=== PATIENT | female | born 2000 | race Hispanic/Latino ===

== ENCOUNTER 2024-02-12 22:56 | Emergency (ER) | payer BC, SELFPAY ==
[2024-02-12 23:00] VITALS: BP 159/110
[2024-02-12] MEDS: CIPRO 750 MG PO (23:24)
[2024-02-12] MEDS: TORADOL 15 MG IM (23:24)
--- NOTE | 2024-02-12 23:25 | ED.GENMED ---
History of Present Illness
General
Chief Complaint: Ear Problem
Source: patient
Time Seen by Provider: 02/12/24 23:07
History of Present Illness
History of Present Illness:
23-year-old female presents emergency department with complaints of increasing left ear pain that started 2 days ago. She does describe recent swimming. She describes pain and a small amount of drainage from the left ear area. She went to an
urgent care and was prescribed external drops which she has been compliant with. Despite this, she notes increasing discomfort associated with mild trismus. She denies fever, chills, headache, dizziness, nausea, vomiting, chest pain, neck pain,
shortness of breath, or other complaints. Patient does not have a history of immunosuppression or diabetes.
Past History
Past History
ED Past Medical History: None
ED Past Surgical History: Tonsilectomy (2009)
Social History
Tobacco: Smoker
Alcohol: Occasional
Drug: None
Personal: Single
Living: with family
Employment: Employed
Family History
Family History: Other
Phy Exam
Physical Exam
Physical Exam:
GENERAL: Alert , appears mildly uncomfortable but generally nontoxic and pleasant
EYE: pupils equal and reactive, EOMI, no nystagmus
NECK: Supple, no significant adenopathy, trachea midline, nods yes and no easily.
ENT: o/p clr, mmm, mild trismus, voice clear, uvula midline. L tm visualized and mild erythema noted, canal is edematous with exudative and mild drdainage assoc with rednes/swarmth of pinna. No mastiod ttp, ear displacement or abnl otherwise.
CARDIAC: Regular rate and rhythm .
LUNGS: Clear breath sounds bilaterally, no acute respiratory distress, no wheezes/rales/rhonchi
ABDOMEN: Soft, without focal tenderness, no r/g, no cvat
NEUROLOGICAL: Alert and oriented, no focal neuro deficits
SKIN: Warm and dry, skin intact.
MUSCULOSKELETAL: No edema, well perfused.
PSYCH: Normal and appropriate interaction.
Course
Orders/Labs/Results
Orders:
Orders
02/12/24 23:19
Ciprofloxacin HCl [Cipro] 750 mg PO NOW STA
Ketorolac [Toradol] 15 mg IM NOW STA
02/12/24 23:24
Oxycodone/Acetaminophen [Percocet 5/325] 2 tablet PO NOW STA
02/12/24 23:31
Wound Culture [Wound/Abscess/Other Culture] Urgent
EDOUARD Source: Face
Specimen Description: Left
Date Specimen was Collected: 02/12/24
Time Specimen was Collected: :28
Vital Signs
Initial and Last Documented VS:
Initial Vital Signs
Temp Pulse Resp BP Pulse Ox
99.1 F 124 18 159/110 97
02/12/24 23:00 02/12/24 23:00 02/12/24 23:00 02/12/24 23:00 02/12/24 23:00
Last Documented Vital Signs
Temp Pulse Resp BP Pulse Ox
99.1 F 124 18 159/110 97
02/12/24 23:00 02/12/24 23:00 02/12/24 23:00 02/12/24 23:00 02/12/24 23:00
*Critical Care Note
Total Time (30-74mins, 75-104mins- exclusive of procedures): Not Applicable
Update Note
Update Note:
Patient presents to the Emergency Department with ___otorrhea and otalgia
Number and Complexity of Problems Addressed at the Encounter
� Chronic conditions affecting care:
� Acute Exacerbation and/or Progression of Chronic Illness:
� Differential Diagnosis includes: But not limited to otitis media, otitis externa, necrotizing otitis externa, etc.
Amount and/or Complexity of Data to be Reviewed and Analyzed
� I performed an independent evaluation of and my interpretation is:
EKG:
CT:
Xrays:
Laboratory Studies:
Other:
� Review of other/old records reveals:
� Clinical information was obtained by an independent historian:
� Prescriptions/Medications Considered but not given:
� Further testing considered but not performed:
Risk of Complications and/or Morbidity or Mortality of Patient Management
� Social determinants of health affecting care:
� Discussion with other providers (PCP, Hospitalists, Consultants, etc):
� Escalation of care including admission/observation vs risk of discharge considered: 12:14 AM reassessment� Patient is significantly improved in regards to pain, smiling, expressing thanks. I did encourage patient to continue
drops as well as taking Cipro 750 twice daily which I called into her pharmacy. Equally important, I emphasized to her the importance of ENT follow-up and reassessment within the next 48 to 72 hours as well as reasons to return the emergency
department.
ED Attending Note
-
Portions of this chart may have been created with voice recognition software.� Occasional wrong word or��sound alike� substitutions may have occurred due to the inherent limitations of voice recognition software.
Discharge Plan
Departure
Patient Disposition: Home (Routine Discharge)
Date of Disposition: 02/13/24
Time of Disposition: 00:12
Patient with high blood pressure during this ER visit?: Yes
Condition: Good
Discharge Problem:
Acute Otitis Externa
Instructions: Outer ear infection, BLOOD PRESSURE
Prescriptions:
New
ciprofloxacin HCl 750 mg tablet
750 mg PO BID Qty: 20 0RF
No Action
prednisone 50 MG tablet
50 mg PO DAILY Qty: 5 0RF
albuterol sulfate [Proventil HFA] 90 MCG/PUFF HFA aerosol inhaler
2 puff inhalation Q4HPRN PRN (Reason: shortness of breath) Qty: 1 0RF
clindamycin HCl 300 MG capsule
300 mg PO TID 5 Days Qty: 14 0RF
prednisone 10 MG tablet
10 mg PO DAILY Qty: 30 0RF
Rx Instructions:
50 mg days 1&2, 40 mg days 3&4, 30 mg days 5&6, 20 mg days 7&8, 10 mg days 9&10
albuterol sulfate 18 GM HFA aerosol inhaler
18 gm IH Q2HPRN PRN (Reason: wheezing, cough) Qty: 1 0RF
albuterol sulfate [ProAir HFA] 90 mcg/actuation Hfa Aerosol Inhaler
2 puff INHALATION Q4HPRN PRN (Reason: shortness of breath) Qty: 8.5 0RF
prednisone 50 mg Tablet
50 mg PO DAILY Qty: 2 0RF
azithromycin 250 mg tablet
250 mg PO DAILY 4 Days Qty: 4 0RF
Referrals:
Nga Glass MD [Active] - Tomorrow
Activity Restrictions/Additional Instructions:
PLEASE TAKE YOUR MEDICATIONS PRESCRIBED. IT IS VERY IMPORTANT THAT YOU CONTACT DR GLASS IN THE MORNING FOR PROMPT (WITHIN 2 DAYS) FOLLOW UP AND REASSESSMENT. IF YOU DEVELOP FEVER, INCREASING/NEW/PERSISTENT PAIN, TROUBLE BREATHING/CHEWING,
DIZZINESS, NECK PAIN, VOMITING, OR OTHER WORRISOME SIGNS, GO TO THE ER IMMEDIATELY!
Interventions
Interventions:
*Risk Screen - Suicide Last Done: 02/12/24 23:00
*General Assessment Last Done: 02/12/24 23:00
*Neglect/Abuse Screening Last Done: 02/12/24 23:00
ED- Fall Risk Assessment Last Done: 02/12/24 23:00
*ED COVID-19 Vaccine History Last Done: 02/12/24 23:00
Discharge Date and Time
Print Language: BERMUDIAN
[2024-02-12] MEDS: PERCOCET 5/325 2 TABLET PO (23:32)
[2024-02-13] VITALS: BP 156/91
== END 2024-02-13 00:31 | disposition home or self-care (01) ==
LOC: EMR 22:56
PROVIDERS: EMERGENCY PHYSICIAN Emergency Medicine
DX: H60.92 Unspecified otitis externa, left ear (principal); R03.0 Elevated blood-pressure reading, without diagnosis of hypertension; F17.200 Nicotine dependence, unspecified, uncomplicated
CPT/HCPCS: 99284; 96372; 87070; 87077; 87186; 87205

== ENCOUNTER 2024-02-14 18:53 | Inpatient (IN) | payer BC, SELFPAY ==
[2024-02-14 14:03] VITALS: BP 174/116
[2024-02-14 15:16] VITALS: BMI 63.8
--- NOTE | 2024-02-14 15:17 | ED.GENMED ---
History of Present Illness
General
Chief Complaint: Ear Problem
Source: patient, records and family (Mother)
Exam Limitations: none
Time Seen by Provider: 02/14/24 14:54
Nursing documentation reviewed up to this point in time: agreed with
History of Present Illness
History of Present Illness:
23-year-old female with no significant chronic medical issues who presents to the emergency room with her mother for evaluation of left ear pain. Patient had onset of symptoms 4 days ago of left otalgia and otorrhea. She was initially seen in
urgent care and was prescribed Ciprodex which did not improve her symptoms. Patient was seen in this emergency room 2 days ago and advised to continue drops as well as started on ciprofloxacin 750 mg twice daily. She has been taking these but
feels her symptoms are actually worsening. She says she is having increasing pain in the ear. She says that she is having trouble getting the drops into the ear because she feels the ear is occluded. She says she is having pain radiating down
towards the neck and the jaw. She says she has pain when she opens her jaw. She says that last night it was severe enough that she began to feel nauseous and vomited once. She has not had any sore throat or difficulty swallowing. She denies any
fevers or chills. She denies any other complaints.
Past History
Past History
ED Past Medical History: None
ED Past Surgical History: Tonsilectomy (2009)
Social History
Tobacco: Smoker
Alcohol: Occasional
Drug: None
Personal: Single
Living: with family
Employment: Employed
Family History
Family History: Other
Review of Systems
Review of Systems
All Other Systems: ROS reviewed and negative except as documented in HPI and ROS
Constitutional: Denies fever or chills
EENT: Reports other (Otorrhea, otalgia)
Respiratory: Denies trouble breathing
Cardiac: Denies chest pain
ABD/GI: Reports nausea and vomiting; Denies abdominal pain
: Denies flank pain
Musculoskeletal: Reports neck pain; Denies back pain
Neurological: Denies dizzy or headache
Phy Exam
Physical Exam
Physical Exam:
General: Awake, alert, oriented x3; anxious but no acute distress
Head: Normocephalic, atraumatic
Eyes: Conjunctiva normal, EOMI
Ears: Right ear�pinna appears normal, no redness or tenderness to the mastoid process, ear canal clear with no edema or erythema, TM intact with good light reflex, no effusion, no erythema //left ear�pinna appears normal, no redness or tenderness in
the mastoid process; left ear canal is occluded with thick purulent discharge, unable to visualize TM
Throat: Airway intact, handling secretions, midline uvula, no edema
Neck: Trachea midline, supple without meningismus, full range of motion; she does have left cervical adenopathy
Lungs: Breathing comfortably no distress
Heart: Tachycardia
Neuro: No gross deficits
Extremities: Warm and well-perfused
Scores
Heart Failure Risk
Heart Failure Risk Score: Not Applicable
Heart Score for Chest Pain Patients
STEMI patient?: Not applicable
Withdrawal Assessment of Alcohol
Withdrawal Assessment Completed?: Not applicable
Course
Orders/Labs/Results
Orders:
Orders
02/14/24 15:09
Ketorolac [Toradol] 30 mg IM NOW STA
02/14/24 15:12
CT Temporal-iac W/o Iv Contras Urgent
Reason For Exam: L otalgia, otorrhea worsening
02/14/24 15:16
Ketorolac [Toradol] 15 mg IV NOW STA
02/14/24 15:19
CRP [C-Reactive Protein] Urgent
Complete Blood Count/With Diff Urgent
Comprehensive Metabolic Panel Urgent
ESR [Erythrocyte Sed Rate] Urgent
02/14/24 15:43
Ketorolac [Toradol] 30 mg IM NOW STA
02/14/24 17:51
ENT CONSULT Urgent
Consulting Provider: Nick Rondon
Was physician already notified: Yes
02/14/24 18:08
Dexamethasone Sod Phosphate [Decadron] 10 mg IV NOW STA
Piperacillin/Tazo 3.375 Gram [Zosyn] 3.375 gram in 50 ml IV NOW
02/14/24 19:00
Tobramycin/Dexamethasone [Tobradex Eye Drops] See Dose Instructions LEFT EAR Q6H
Abnormal Lab Results
02/14/24
15:19
MCV 79.6 L fL
(81.0-99.0)
MCH 26.6 L pg
(27.0-31.0)
ESR 53 H mm/hour
(0-20)
Carbon Dioxide 19 L mmol/L
(22-30)
C-Reactive Protein 50.70 H mg/L
(0.0-10.00)
02/14/24 15:19
02/14/24 15:19
Vital Signs
Initial and Last Documented VS:
Initial Vital Signs
Temp Pulse Resp BP Pulse Ox
36.6 C 114 18 174/116 98
02/14/24 14:03 02/14/24 14:03 02/14/24 14:03 02/14/24 14:03 02/14/24 14:03
Last Documented Vital Signs
Temp Pulse Resp BP Pulse Ox
36.6 C 118 17 151/104 98
02/14/24 14:03 02/14/24 17:52 02/14/24 17:52 02/14/24 17:52 02/14/24 17:52
MDM/Problems Addressed
Differential Diagnosis Includes:
TM perforation, acute otitis externa, malignant otitis externa, otitis media
MDM/Problems Addressed:
23-year-old female presents with worsening left otalgia and otorrhea despite outpatient treatment with eardrops and oral antibiotic as described above. Hypertensive and tachycardic in triage otherwise normal vitals. Physical exam as above. Her
left TM is not visible as her left ear canal is occluded with thick purulent discharge�will certainly need to clean out canal to visualize TM and can irrigate clean if intact. My concern given the progression of her symptoms is potentially for
malignant otitis externa especially given the severity of her pain. Will check labs including a CBC and a CMP, ESR/CRP. Will check CT of the temporal bone. Will discuss with ENT pending initial assessment and treatment. Treat pain.
Labs reviewed: CBC and CMP unremarkable, ESR and CRP were elevated. CT shows findings concerning for possible malignant otitis externa. Case discussed with ENT for evaluation.
ENT evaluated at bedside, placed ear wick in the left ear. Recommended admission for IV antibiotics�recommended starting with Zosyn. Also recommended treating with dexamethasone and TobraDex drops to be applied to left ear wick. Case discussed
with hospitalist for admission.
*Radiology
Radiology exam reviewed: radiology read reviewed
*Pulse Oximetry
Patient hypoxic: no
*Critical Care Note
Total Time (30-74mins, 75-104mins- exclusive of procedures): Not Applicable
Data Reviewed
Source: patient and family (Mother)
Patient Management
Discussion with other providers: Hospitalist (Discussed with hospitalist) and Crystal Grower (Discussed with ENT)
Escalation/DeEscalation of care consider admission/obs:
Admission indicated
ED Attending Note
-
Portions of this chart may have been created with voice recognition software.� Occasional wrong word or��sound alike� substitutions may have occurred due to the inherent limitations of voice recognition software.
Discharge Plan
Departure
Patient Disposition: Admit
Date of Disposition: 02/14/24
Time of Disposition: 18:11
Admit to doctor: Cici
Presentation/result/management discussed w/ accepting MD/DO: Hospitalist
Discharge Problem:
Acute Otitis Externa
Referrals:
UNKNOWN - PT DOES,NOT KNOW [Family Provider] -
Interventions
Interventions:
*Risk Screen - Suicide Last Done: 02/14/24 15:17
*General Assessment Last Done: 02/14/24 14:03
*Neglect/Abuse Screening Last Done: 02/14/24 15:17
*ED COVID-19 Vaccine History Last Done: 02/14/24 14:03
Discharge Date and Time
Print Language: ICELANDIC
[2024-02-14] MEDS: TORADOL IM (15:18)
[2024-02-14] MEDS: TORADOL 30 MG IM (15:43)
[2024-02-14 15:50] LABS: % Basophils 0.5 % (0-2); % Eosinophils 4.7 % (0-6); % Immature Granulocytes 0.3 % (0-0.5); % Lymphocytes 26.9 % (20.5-51.1); % Monocytes 5.3 % (1.7-9.3); % Neutrophils 62.3 % (42.2-75.2); Absolute Basophils 0.1 10^3/uL (0-0.2); Absolute Eosinophils 0.5 10^3/uL (0-0.7); Absolute Lymphocytes 2.7 10^3/uL (1.2-3.4); Absolute Monocytes 0.5 10^3/uL (0.1-0.6); Absolute Neutrophils 6.3 10^3/uL (1.4-6.5); Hematocrit 39.8 % (37.0-47.0); Hemoglobin 13.3 g/dL (12.0-16.0); Mean Corp Hgb Conc. 33.4 g/dL (33.0-37.0); Mean Corpuscular Hgb 26.6 pg (27.0-31.0); Mean Corpuscular Volume 79.6 fL (81.0-99.0); Mean Platelet Volume 9.3 fL (7.4-10.4); Nucleated Red Blood Cells % 0 %; Platelet Count 379 10^3/uL (130-400); Red Cell Dist. Width 12.8 % (11.5-14.5); White Blood Cell Count 10.1 10^3/uL (4.8-10.8)
[2024-02-14 15:55] LABS: Erythrocyte Sed Rate 53 mm/hour (0-20)
[2024-02-14 16:11] LABS: ALT (SGPT) 29 U/L (0-35); AST (SGOT) 31 U/L (14-36); Albumin 4.5 g/dl (3.5-5.0); Alkaline Phosphatase 86 U/L (38-126); Blood Urea Nitrogen 11 mg/dl (7-17); Calcium 9.6 mg/dl (8.4-10.2); Carbon Dioxide 19 mmol/L (22-30); Chloride 106 mmol/L (98-107); Estimated Creatinine Clearance > 125 ml/min; Glucose 90 mg/dl (70-99); Potassium 4.1 mmol/L (3.5-5.1); Sodium 138 mmol/L (135-145); Total Bilirubin 0.6 mg/dl (0.2-1.3); eGFR > 60.00
[2024-02-14 17:52] VITALS: BP 151/104
--- NOTE | 2024-02-14 18:13 | HPS.HSE ---
Family Physician
-
Family Physician: NOT KNOW UNKNOWN - PT DOES
Chief Complaint
-
left ear ache
History of Present Illness
23-year-old female with no significant chronic medical issues who presents to the emergency room with her mother for evaluation of left ear pain which started four days ago. She was initially seen in urgent care and was prescribed Ciprodex which
did not improve her symptoms. Patient was seen in this emergency room 2 days ago and advised to continue drops as well as started on ciprofloxacin 750 mg twice daily. She has been taking these but feels her symptoms are actually worsening. patient
stated yellowish drainage from ear as well as pain radiating to jaw and neck. she complained of WHARTON and dizzy. she also stated n and vomiting yesterday. denied abdominal pain, diarrhea. denied fever, chills, chest pain, sob. denied dysuria or
hematuria.
patient was evaluated by ENT in ER. placed wick in her ear. recommended iv zosyn, dexamethasone. admitting for further managment.
Medical History
Past Medical History
Past Medical History: Reports None
Past Surgical History: Reports Other
Additional Past Surgical History:
tonsillectomy
adenoid removal
Social History
Tobacco: Vaping
Alcohol: Occasional
Drug: Marijuana
Living: With Family
Family History
Family History: Not pertinent
Allergies / Home Medications
Allergies reflects when Allergies were last updated in [employer].
Home Medications with original date entered in [employer]
Allergy/Medication List:
Allergies
Allergy/AdvReac Type Severity Reaction Status Date / Time
bee venom protein (honey bee) Allergy Unknown Verified 02/14/24 14:05
fire ant Allergy Unknown Verified 02/14/24 14:05
shellfish derived Allergy Tongue Verified 02/14/24 14:05
Swelling
Home Medications
Control 1 tab PO HS 02/14/24
acetaminophen 325 mg tablet (Tylenol) 650 mg PO Q6HPRN mild pain 02/14/24
ciprofloxacin HCl 750 mg tablet 750 mg PO BID 02/14/24
Review of Systems
-
Constitutional: Reports No Symptoms
EENT: Reports Other (left ear ache)
Respiratory: Reports No Symptoms
Cardiac: Reports No Symptoms
Abdomen/GI: Reports No Symptoms
: Reports No Symptoms
Musculoskeletal: Reports No Symptoms
Skin: Reports No Symptoms
Neurological: Reports No Symptoms
Endocrine: Reports No Symptoms
Hematologic/Lymphatic: Reports No Symptoms
Psych: Reports No Symptoms
Physical Exam
Vital Signs
Vital Signs
Temp Pulse Resp BP Pulse Ox
97.9 F 118 17 151/104 98
02/14/24 14:03 02/14/24 17:52 02/14/24 17:52 02/14/24 17:52 02/14/24 17:52
Physical Exam
General: Well Developed, Well Nourished and No Apparent Distress
HEENT: NormoCephalic, Moist mucous membranes and Atraumatic
Respiratory: Rales
Cardiac: S1/S2 and Regular Rhythm; No Murmur or Rub
GI: Soft, Non Tender, Non Distended and Normal Bowel Sounds; No Organomegaly
Rectal: Deferred by Provider
Musculoskeletal: No Clubbing, No Cyanosis and No Edema
Skin: No Rash
Neuro: AO x 3 and Nonfocal/grossly intact
Psych: Calm
Laboratory Results
-
02/14/24 15:19
02/14/24 15:19
Laboratory Results
Total Bilirubin 0.6 mg/dl (0.2-1.3) 02/14/24 15:19
AST 31 U/L (14-36) 02/14/24 15:19
ALT 29 U/L (0-35) 02/14/24 15:19
Alkaline Phosphatase 86 U/L (38-126) 02/14/24 15:19
Data Reviewed
-
CT Scan: Report Reviewed by me
Lab Data: Labs Reviewed by me
Impression/Plan
-
# Severe otitis externa
-Failed outpatient therapy
-IV Zosyn continued
-IV Decadron
-TobraDex drops
-toradol prn for pain
-ENT consult
-CT temporal bone Large-volume abnormal soft tissue near completely filling the left external auditory canal without erosion of the osseous margins of the canal without associated abscess
-Cartilaginous involvement at the base of the left ear and periauricular soft tissues
-Left otitis media with large volume soft tissue throughout the hypotympanum and mesial tympanum with minimal extension into Prussak's space without associated erosion of the scutum or middle ear ossicles
-Left mastoiditis with cortical interruption at the posterior aspect of the mastoid air cells suggesting osseous destruction with suspected osteomyelitis but without soft tissue extension into the posterior fossa
# Hypertension emergency/tachycardia likely from pain
-Fluids continued
-Continue to monitor
#DVT Prophylaxis
-scd
#CODE status
-full code
--- NOTE | 2024-02-14 18:20 | CON.MD ---
Consultation - Medical
-
Patient seen and evaluated in the emergency room.
Full consult dictated.
23-year-old female with acute otitis externa/acute otitis media of left ear.
-Agree with admission.
-Would treat with antipseudomonal antibiotic, likely Zosyn.
-Wick placed in left ear.
-Start TobraDex drops, eyedrops are okay, 5 drops in left ear 3 times daily.
-Would give patient some Decadron for the next 48 hours.
-Hopefully infection will start to improve.
-If patient is not getting better may need to consider ID consult or bone scan on Friday.
[2024-02-14] MEDS: DECADRON 10 MG IV (18:36)
[2024-02-14] MEDS: TOBRADEX EYE DROPS 2 DROP LEFT EAR (18:38)
[2024-02-14] MEDS: ZOSYN 50 IV ×2 (18:38→23:50)
--- NOTE | 2024-02-14 18:51 | W.PN.UPDATE ---
Update Note
Progress Note Update
Patient seen and evaluated in conjunction with CM. Agree with history and physical assessment and plan.
Briefly this is a 23-year-old female with no significant past medical history who presents to the emergency department for left sided ear pain and swelling. Patient reported that about 5 days ago she restarted swimming and then soon afterwards
noticed pain in her left ear. She saw a physician who recommended topical agents and then 2 days ago she started taking oral antibiotics. Despite this she is continued to have pain, headache, chills. She denies fevers nausea or vomiting thus far.
In the ED she was afebrile, hypertensive but otherwise hemodynamically stable. CBC was 10 point within normal hemoglobin and platelet count. Chemistries within normal limits. CT of the temporal bones shows likely necrotizing otitis externa with
impending mastoiditis possible osteomyelitis.
Assessment and plan
Necrotizing otitis externa with possible mastoiditis -patient a trial of oral antibiotics. She been seen by ENT and appreciate recommendations.
-Admit to F
-IV Zosyn, dexamethasone
-Topical antibiotics
-Pain control with Toradol, acetaminophen and judicious use of opioids.
-Serial examination.
-ENT to follow
DVT PPX lovenox ppx
Full Code
[2024-02-14 20:00] VITALS: BP 125/78
[2024-02-14 20:05] VITALS: BP 156/100; BMI 61.3
[2024-02-14 20:21] VITALS: BMI 61.3
[2024-02-14] MEDS: NSS 1000 IV (20:22)
[2024-02-14] MEDS: TORADOL 15 MG IV (21:20)
[2024-02-14] MEDS: TOBRADEX EYE DROPS 5 DROP LEFT EAR (21:23)
[2024-02-14 23:00] VITALS: BP 165/101
[2024-02-15 04:02] VITALS: BP 141/90
[2024-02-15 06:00] VITALS: BMI 61.3
[2024-02-15 06:41] LABS: Hematocrit 35.5 % (37.0-47.0); Hemoglobin 12.1 g/dL (12.0-16.0); Mean Corp Hgb Conc. 34.1 g/dL (33.0-37.0); Mean Corpuscular Hgb 26.3 pg (27.0-31.0); Mean Corpuscular Volume 77.2 fL (81.0-99.0); Mean Platelet Volume 9.8 fL (7.4-10.4); Platelet Count 427 10^3/uL (130-400); Red Cell Dist. Width 12.9 % (11.5-14.5); White Blood Cell Count 9.3 10^3/uL (4.8-10.8)
[2024-02-15 07:10] LABS: Blood Urea Nitrogen 16 mg/dl (7-17); Calcium 9.6 mg/dl (8.4-10.2); Carbon Dioxide 18 mmol/L (22-30); Chloride 107 mmol/L (98-107); Estimated Creatinine Clearance > 125 ml/min; Glucose 263 mg/dl (70-99); Potassium 4.7 mmol/L (3.5-5.1); Sodium 138 mmol/L (135-145); eGFR > 60.00
[2024-02-15 08:03] VITALS: BP 155/108
[2024-02-15] MEDS: ZOSYN 50 IV ×2 (08:16→13:07)
[2024-02-15] MEDS: TOBRADEX EYE DROPS 5 DROP LEFT EAR ×3 (08:19→22:00)
[2024-02-15] MEDS: DECADRON 4 MG IV ×2 (08:25→20:28)
[2024-02-15] MEDS: TORADOL 15 MG IV ×2 (08:31→14:49)
[2024-02-15] MEDS: FLUSH (NSS) 2 FLUSH IV ×3 (08:32→14:49)
[2024-02-15] MEDS: NSS 1000 IV (08:32)
--- NOTE | 2024-02-15 10:33 | CM ---
CM met with pt at bedside.
Pt resides in a 4th floor apartment elevator access with parents.
Prior to admission, pt independent with ambulation using no AD and ADL's. Pt denies any DME.
Pt currently works at [employer].
Pt does not have a PCP. When ill, pt reports to an urgent care. Pt shares she has been discussing with her Mother and Mom is helping her establish a PCP.
Pharmacy is [facility].
Discharge dispo home no needs.
--- NOTE | 2024-02-15 11:52 | W.PN.ENT ---
Today's Communication
-
Continue treatment for another 24 hours.
Impression / Plan
-
A/P- 23-year-old female with acute otitis externa/otitis media of left ear.
-Patient has improved overnight.
-Continue antipseudomonal antibiotics.
-Continue TobraDex eardrops 3 times daily onto wick.
-Continue Decadron as well.
-Recheck in AM.
-Hopefully if the patient is stable tomorrow we can remove her wick.
-She may be able to be discharged tomorrow on oral antibiotics if stable.
Subjective Data
-
Patient feels better this morning.
Decreased ear pain.
Denies fevers or chills.
No nausea or vomiting.
Denies any new complaints.
Objective Data
-
Vital Signs
Temp Pulse Resp BP Pulse Ox
98 F 105 20 155/108 95
02/15/24 08:03 02/15/24 08:03 02/15/24 08:03 02/15/24 08:03 02/15/24 08:03
Intake & Output
02/14/24 02/15/24 02/16/24
06:59 06:59 06:59
Intake:
Oral fluids 480 / 480
Other:
Number of approximated MODERATE 2
amounts of urine
Lab Results
02/15/24 05:17
02/15/24 05:17
Calcium 9.6 mg/dl (8.4-10.2) 02/15/24 05:17
Total Bilirubin 0.6 mg/dl (0.2-1.3) 02/14/24 15:19
AST 31 U/L (14-36) 02/14/24 15:19
ALT 29 U/L (0-35) 02/14/24 15:19
Alkaline Phosphatase 86 U/L (38-126) 02/14/24 15:19
Physical Exam
-
Awake, alert, oriented, in no acute distress.
Left ear with decreased erythema and edema of pinna and external auditory meatus.
Wick in place in external auditory canal.
Appears to have decreased edema of ear canal.
No purulent drainage noted.
Mastoid unremarkable, without any erythema or tenderness, no fluctuance noted.
Remainder of exam unremarkable.
--- NOTE | 2024-02-15 12:08 | W.PN.HOSP.TC ---
Today's Communication/Plan
-
continue outlined plan below
Assessment / Plan
Assessment / Plan
Assessment:
Left Acute otitis externa (necrotizing) and Left acute otitis media
Mastoiditis, acute, left
- CT: Large-volume abnormal soft tissue near completely filling the left external auditory canal without erosion of the osseous margins of the canal without associated abscess
- ENT following
- L Ear Wick in place and applying Tobradex eye drops
- continue IV Decadron
- continue IV Zosyn to cover pseudomonas. Previously episodes with no improvement with PO Cipro. consider ID consult Friday.
- continue pain control
Hypertensive urgency from pain/anxiety
- prn Hydralazine; likely will improve as symptoms improve
- dc IVF as eating well
DVT ppx: SCDs
Code: Full
Anticipated Discharge: 24 - 48 hours
Subjective/Interval History
-
Date of Service: February 15, 2024
ear pain improving, no fever/chills
Objective Data
-
Labs:
Laboratory Results
02/15/24
05:17
WBC 9.3
Hgb 12.1
Hct 35.5 L
Plt Count 427 H
Sodium 138
Potassium 4.7
Chloride 107
Carbon Dioxide 18 L
BUN 16
Creatinine 0.8
Glucose 263 H
Calcium 9.6
Vital Signs:
Vital Signs
Temp Pulse Resp BP Pulse Ox
98 F 105 20 155/108 95
02/15/24 08:03 02/15/24 08:03 02/15/24 08:03 02/15/24 08:03 02/15/24 08:03
I&O
02/14/24 02/15/24 02/16/24
06:59 06:59 06:59
Intake Total 480 / 480
Balance 480 / 480
Physical Exam
-
General: No Apparent Distress
HEENT: Normocephalic, Atraumatic and Other (Left ear wick, decreased erythema. no purulent drainage)
Respiratory: Negative Wheezes or Rales
Cardiac: Regular Rhythm and S1/S2
GI: Soft
Genito-urinary: No Costovertebral Tender
Musculoskeletal: No Edema
Neuro: AO x 3
Hematologic / Lymphatic: No Lymphadenopathy
Psych: Calm
Data Reviewed
-
Total Time Spent with Patient (in minutes): 42
Labs: Labs Reviewed by me
[2024-02-15] MEDS: NSS IV (12:30)
--- NOTE | 2024-02-15 13:23 | PTCARENOTE ---
Pt states she was swimming in [employer] and then felt pain in left ear. However didn't notice a feeling of her ear being clogged with water at that time. Now pt report feeling dizzy when moving. Will cont to monitor and obtain
further orders.
[2024-02-15] MEDS: ANTIVERT 25 MG PO (13:45)
--- NOTE | 2024-02-15 14:42 | CHAP ---
Visited Ms. Myers at 9:55 today - she greeted me with a bright smile, saying she is doing a lot better. Emotional and spiritual support provided.
[2024-02-15] MEDS: STERILE WATER FOR INJECTION 10 ML IV ×2 (14:49→21:55)
[2024-02-15] MEDS: MAXIPIME 2000 MG IV ×2 (14:49→21:54)
[2024-02-15 15:05] VITALS: BP 164/110
[2024-02-15] MEDS: TYLENOL 650 MG PO ×2 (16:48→23:10)
[2024-02-15 23:11] VITALS: BP 163/103
[2024-02-16 00:35] VITALS: BP 154/93
[2024-02-16] MEDS: ANTIVERT 25 MG PO (00:37)
[2024-02-16] MEDS: MAXIPIME 2000 MG IV ×3 (06:03→22:00)
[2024-02-16] MEDS: STERILE WATER FOR INJECTION 10 ML IV ×3 (06:03→22:00)
[2024-02-16 06:07] LABS: Hemoglobin 13.3 g/dL (12.0-16.0); Mean Corp Hgb Conc. 33.3 g/dL (33.0-37.0); Mean Corpuscular Hgb 26.8 pg (27.0-31.0); Mean Corpuscular Volume 80.6 fL (81.0-99.0); Mean Platelet Volume 9.6 fL (7.4-10.4); Platelet Count 439 10^3/uL (130-400); Red Blood Cell Count 4.96 10^6/uL (4.20-5.40); Red Cell Dist. Width 12.9 % (11.5-14.5); White Blood Cell Count 13.4 10^3/uL (4.8-10.8)
[2024-02-16 06:22] LABS: Blood Urea Nitrogen 17 mg/dl (7-17); Calcium 9.8 mg/dl (8.4-10.2); Carbon Dioxide 18 mmol/L (22-30); Chloride 109 mmol/L (98-107); Estimated Creatinine Clearance > 125 ml/min; Glucose 168 mg/dl (70-99); Potassium 5.3 mmol/L (3.5-5.1); Sodium 138 mmol/L (135-145); eGFR > 60.00
[2024-02-16 07:10] VITALS: BP 165/115
[2024-02-16] MEDS: DECADRON 4 MG IV ×2 (08:10→20:19)
[2024-02-16] MEDS: TOBRADEX EYE DROPS 5 DROP LEFT EAR ×3 (08:11→22:01)
[2024-02-16] MEDS: APRESOLINE 5 MG IV (08:13)
[2024-02-16] MEDS: TORADOL 15 MG IV (08:19)
--- NOTE | 2024-02-16 08:31 | W.PN.ENT ---
Today's Communication
-
Wick removed at bedside, patient continues to improve.
Continue IV antibiotics and topical eardrops into ear canal.
Wean Decadron.
Patient should get 24 more hours of IV antibiotics.
Plan on discharging home tomorrow on oral antibiotic if patient continues to improve.
Impression / Plan
-
A/P- 23-year-old female with acute otitis externa/otitis media of left ear.
-Patient continues to improve.
-Wick removed at bedside today.
-Continue TobraDex eardrops 3 times daily straight into ear canal.
-Continue antipseudomonal antibiotics intravenously for 1 more day.
-Okay with tapering Decadron..
-Recheck in tomorrow.
-Would plan on discharge tomorrow with oral antibiotics and topical eardrops if patient continues to improve.
Subjective Data
-
Patient continues to improve.
Again with decreased ear pain.
Able to touch ear without any discomfort.
Wick remains in place.
Denies fevers or chills.
No nausea or vomiting.
Denies any new complaints.
Objective Data
-
Vital Signs
Temp Pulse Resp BP Pulse Ox
98.1 F 90 22 165/115 94
02/15/24 23:11 02/16/24 08:13 02/15/24 23:11 02/16/24 08:13 02/16/24 00:53
Intake & Output
02/15/24 02/16/24 02/17/24
06:59 06:59 06:59
Intake:
Oral fluids 480 / 480 1920 / 1920
IV piggybacks 100 / 100
Other:
Number of approximated MODERATE 2 3
amounts of urine
Lab Results
02/16/24 04:52
02/16/24 04:52
Calcium 9.8 mg/dl (8.4-10.2) 02/16/24 04:52
Total Bilirubin 0.6 mg/dl (0.2-1.3) 02/14/24 15:19
AST 31 U/L (14-36) 02/14/24 15:19
ALT 29 U/L (0-35) 02/14/24 15:19
Alkaline Phosphatase 86 U/L (38-126) 02/14/24 15:19
Physical Exam
-
Awake, alert, oriented, in no acute distress.
Afebrile, vital signs stable.
Left ear with decreased erythema and edema of pinna and external auditory meatus, scant overall.
Wick in place in external auditory canal.
Wick removed at bedside.
EAC with mild to moderate edema, mild exudate present, moderate erythema of canal.
TM thickened, difficult to visualize.
Mastoid unremarkable, without any erythema or tenderness, no fluctuance noted.
Remainder of exam unremarkable.
--- NOTE | 2024-02-16 09:46 | W.PN.HOSP.TC ---
Today's Communication/Plan
-
C/W IV antibiotics and IV steroid today
Repeat BMP in AM to recheck K
Assessment / Plan
Assessment / Plan
#Left Acute otitis externa (necrotizing) and Left acute otitis media
#Mastoiditis, acute, left
-Presented with left ear pain and drainage, failed out-patient course of ciprofloxacin
-CT with Large-volume abnormal soft tissue near completely filling the left external auditory canal without erosion of the osseous margins of the canal
-Currently receiving IV zosyn for pseudomonal coverage, IV steroid, Tobradex drops, left ear wick in place
-On as needed pain regimen, pain has been improving; still has leukocytosis
-ENT following
Plan
-Continue IV Decadron and IV zosyn for today
-Plan to transition to Oral antibiotic with oral steroid taper at DC
-Continue analgesia PRN
-Trend CBC, clinical monitoring
#Hypertensive urgency from pain/anxiety
-BP still slightly elevated but improving as pain resolves
-C/W PRN hydralazine
DVT ppx: SCDs
Diet: House
Dispo: DC home tomorrow
Code: Full
Anticipated Discharge: Within 24 hours
Subjective/Interval History
-
Date of Service: February 16, 2024
Seen and examined at the bedside, no acute events overnight. Feels well today, pain improving. Denies fevers, chills, ear drainage
Objective Data
-
Labs:
Laboratory Results
02/16/24
04:52
WBC 13.4 H
Hgb 13.3
Hct 40.0
Plt Count 439 H
Sodium 138
Potassium 5.3 H
Chloride 109 H
Carbon Dioxide 18 L
BUN 17
Creatinine 0.6
Glucose 168 H
Calcium 9.8
Vital Signs:
Vital Signs
Temp Pulse Resp BP Pulse Ox
97.7 F 90 18 165/115 96
02/16/24 07:10 02/16/24 08:13 02/16/24 07:10 02/16/24 08:13 02/16/24 07:10
I&O
02/15/24 02/16/24 02/17/24
06:59 06:59 06:59
Intake Total 480 / 480 2019
Balance 480 / 480 2019
Review of Systems
-
History Source: Patient
All other systems: Reviewed and negative
Constitutional: Reports No Symptoms; Denies Fever or Chills
EENT: Reports Eye Pain
Respiratory: Reports No Symptoms
Cardiac: Reports No Symptoms
Abdomen/GI: Reports No Symptoms
Genitourinary: Reports No Symptoms
Musculoskeletal: Reports No Symptoms
Skin: Reports No Symptoms
Neuro: Reports No Symptoms
Physical Exam
-
General: Comfortable, Conversant and Obese
HEENT: Normocephalic, Atraumatic, Moist Mucous Membranes, Ears Appear Normal and Other (Left mastoid tenderness to palpation)
Respiratory: Clear to Auscultation
Cardiac: Regular Rhythm and S1/S2; Negative Murmur or JVD
GI: Soft, Nontender, Nondistended and Normal Bowel Sounds
Skin: Warm and Dry; Negative Rash
Neuro: AO x 3 and Nonfocal/Grossly Intact
Hematologic / Lymphatic: Lymphadenopathy (Left benito-auricular)
Data Reviewed
-
Labs: Labs Reviewed by me, Discussed with Nurse and Discussed with Patient
--- NOTE | 2024-02-16 09:46 | CON.ID ---
Addendum entered and electronically signed by Gerry Abreu DO 02/16/24 14:06:
I have personally performed a history and physical exam of the patient and discussed management with the resident. I reviewed the resident's note and agree with the documented findings and plan of care HPI/CC except the following changes in
documentation.
Hx of swimming pool exposure prior to symptoms. Overall currently feels better.
Impression:
Acute otitis externa 2* Paeudomonas
Leukocytosis; likely steroid effect.
Asthma
Obesity
Recommendations
Leukocytosis - WBC 13.4. No elevated white count on admission. likely due to steroids
Patient is afebrile, symptoms improved
Ear discharge culture�Pseudomonas and Aerococcus.
Ear wick removed today by ENT.
Continue TobraDex eardrops 3 times daily
Continue cefepime while inpatient. At D/C, transition back to cipro 500 mg PO BID, for an additional 5-7 days.
Original Note:
Consultation
-
Date/Time Consultation Requested: 02/15/2024, 1318 hrs
Date/Time Consultation Performed: 02/16/2024, 0930 hrs
Requesting Provider: Dr. Eduardo Mehta
Performing Provider: Dr. Gerry Abreu
Chief Complaint / Past History
Chief Complaint
Acute otitis externa
History of Present Illness
23-year-old, Ms. Chantelle Myers was evaluated at the request of Dr. Eduardo Leal, in regards to acute otitis externa. History is obtained from chart review along with patient interview.
Patient presented to the ER reporting pain and ear discharge on 02/14/2024. Patient reports having the symptoms since February 08, when she noticed that her face has swollen on the left side, occluded ear, pain in the ear and hearing was muffled.
Patient mentioned that the pain was radiating to the left jaw and she also had trismus. No history of fever/chills, recent infection, exposure to sick contacts, on chronic immunosuppression, diabetes. No history of ear trauma, use of Q-tips.
Patient mentioned that prior to the symptoms started, she was swimming in an outdoor inflatable pool in the backyard, and states that the water was chlorinated. She went to the urgent care on 02/11/2024 and was started on Ciprodex drops. Her
symptoms did not improve and she was seen in the ER on 02/13/2024 and was discharged on ciprofloxacin 750 mg twice daily. Her symptoms worsened and she was admitted on 02/14/2024. CT scan was done in the ER which showed findings consistent with
necrotizing otitis externa, left otitis media, left mastoiditis. No leukocytosis. ENT consulted, she was started on TobraDex drops, dexamethasone IV, Zosyn, ear wick placed.
Today during the clinical encounter the patient feels her symptoms have improved a lot., She also mentioned that her right ear feels clogged since yesterday night. No change in the hearing, no otorrhea.
Past History
Past Medical History: Asthma
Past Surgical History: None
Allergy History:
bee venom protein (honey bee) Allergy (Verified 02/14/24 14:05)
Unknown
fire ant Allergy (Verified 02/14/24 14:05)
Unknown
shellfish derived Allergy (Verified 02/14/24 14:05)
Tongue Swelling
Medications Reviewed: Yes
Current Antibiotics:
Cefepime
TobraDex drops
Social History
Tobacco: Vaping (Nicotine)
Alcohol: Occasional
Drug: Marijuana
Personal: Single
Living: With Family
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
Family History
Family History: Not Pertinent
Review of Systems
Review of Systems
As per HPI
Vital Signs
Temp Pulse Resp BP Pulse Ox
97.7 F 90 18 165/115 96
02/16/24 07:10 02/16/24 08:13 02/16/24 07:10 02/16/24 08:13 02/16/24 07:10
Physical Exam
Physical Exam
Constitutional: No Acute Distress
Head: Normocephalic and Other (Left ear- EAC with moderate edema, mild exudate present, TM- difficult to visualize. No mastoid tenderness. Right ear-EAC normal, bulging tympanic membrane with some fluid behind.)
Eyes: Pupils Equal and Pupils Round
Lymph Nodes: Other (Cervical lymphadenopathy on the left side)
Cardiovascular: Regular Rate and S1/S2
Pulmonary: Clear (Clear to auscultation bilaterally)
Gastrointestinal: Soft, Non Tender, Non Distended and Normal Bowel Sounds
Skin: Warm and Dry
Neurological: Awake, Alert, Oriented and AO x 3
Lab / Diagnostic Study Results
02/16/24 04:52
02/16/24 04:52
Abs Immat Gran (auto) 0.0 10^3/uL (0-0.05) 02/14/24 15:19
Absolute Neuts (auto) 6.3 10^3/uL (1.4-6.5) 02/14/24 15:19
Absolute Lymphs (auto) 2.7 10^3/uL (1.2-3.4) 02/14/24 15:19
Absolute Monos (auto) 0.5 10^3/uL (0.1-0.6) 02/14/24 15:19
Absolute Basos (auto) 0.1 10^3/uL (0-0.2) 02/14/24 15:19
Immature Gran % 0.3 % (0-0.5) 02/14/24 15:19
Neutrophils % 62.3 % (42.2-75.2) 02/14/24 15:19
Lymphocytes % 26.9 % (20.5-51.1) 02/14/24 15:19
Monocytes % 5.3 % (1.7-9.3) 02/14/24 15:19
Eosinophils % 4.7 % (0-6) 02/14/24 15:19
Basophils % 0.5 % (0-2) 02/14/24 15:19
ESR 53 mm/hour (0-20) H 02/14/24 15:19
C-Reactive Protein 50.70 mg/L (0.0-10.00) H 02/14/24 15:19
Microbiology Results
Micro:
ER discharge culture�Pseudomonas aeruginosa, Aerococcus species
Imaging
Temporal bone CT 02-14-2024 :
Findings consistent with necrotizing otitis externa/malignant otitis externa
-Large-volume abnormal soft tissue near completely filling the left external auditory canal without erosion of the osseous margins of the canal without associated abscess
-Cartilaginous involvement at the base of the left ear and periauricular soft tissues
-Left otitis media with large volume soft tissue throughout the hypotympanum and mesial tympanum with minimal extension into Prussak's space without associated erosion of the scutum or middle ear ossicles
-Left mastoiditis with cortical interruption at the posterior aspect of the mastoid air cells suggesting osseous destruction with suspected osteomyelitis but without soft tissue extension into the posterior fossa
Assessment / Plan
Impression
Acute otitis externa
Other conditions
Asthma
Obesity
Recommendations
Leukocytosis - WBC 13.4. No elevated white count on admission. likely due to steroids
Patient is afebrile, symptoms improved
Ear discharge culture�Pseudomonas and Aerococcus.
Ear wick removed today by ENT.
Continue TobraDex eardrops 3 times daily
Continue cefepime
[2024-02-16] MEDS: TYLENOL 650 MG PO ×2 (10:43→22:08)
[2024-02-16 11:43] VITALS: BP 163/95
[2024-02-16 15:10] VITALS: BP 134/70
--- NOTE | 2024-02-16 16:02 | CM ---
IV/AB, IV/Steroids. Discharge Plan of Care: Home with no needs.
[2024-02-16 23:13] VITALS: BP 146/94
[2024-02-17] MEDS: TORADOL 15 MG IV (00:38)
[2024-02-17] MEDS: MAXIPIME 2000 MG IV (05:50)
[2024-02-17] MEDS: STERILE WATER FOR INJECTION 10 ML IV (05:50)
[2024-02-17 06:07] LABS: % Basophils 0.1 % (0-2); % Immature Granulocytes 0.8 % (0-0.5); % Lymphocytes 20.1 % (20.5-51.1); % Monocytes 4.1 % (1.7-9.3); % Neutrophils 74.9 % (42.2-75.2); Absolute Immature Granulocytes 0.1 10^3/uL (0-0.05); Absolute Lymphocytes 3.1 10^3/uL (1.2-3.4); Absolute Monocytes 0.6 10^3/uL (0.1-0.6); Absolute Neutrophils 11.3 10^3/uL (1.4-6.5); Hematocrit 40.1 % (37.0-47.0); Hemoglobin 13.4 g/dL (12.0-16.0); Mean Corp Hgb Conc. 33.4 g/dL (33.0-37.0); Mean Corpuscular Hgb 25.9 pg (27.0-31.0); Mean Corpuscular Volume 77.6 fL (81.0-99.0); Mean Platelet Volume 9.5 fL (7.4-10.4); Nucleated Red Blood Cells % 0 %; Platelet Count 457 10^3/uL (130-400); Red Blood Cell Count 5.17 10^6/uL (4.20-5.40); Red Cell Dist. Width 12.8 % (11.5-14.5); White Blood Cell Count 15.2 10^3/uL (4.8-10.8)
[2024-02-17 06:30] LABS: Blood Urea Nitrogen 19 mg/dl (7-17); Carbon Dioxide 19 mmol/L (22-30); Chloride 105 mmol/L (98-107); Estimated Creatinine Clearance > 125 ml/min; Glucose 133 mg/dl (70-99); Sodium 137 mmol/L (135-145); eGFR > 60.00
[2024-02-17 07:15] VITALS: BP 149/88
[2024-02-17] MEDS: DECADRON 4 MG IV (08:18)
[2024-02-17] MEDS: TOBRADEX EYE DROPS 5 DROP LEFT EAR (08:18)
--- NOTE | 2024-02-17 09:42 | W.PN.HOSP.TC ---
Today's Communication/Plan
-
Discharge on Abx and short course prednisone
Assessment / Plan
Assessment / Plan
#Left Acute otitis externa (necrotizing) and Left acute otitis media
#Mastoiditis, acute, left
-Presented with left ear pain and drainage, failed out-patient course of ciprofloxacin
-CT with Large-volume abnormal soft tissue near completely filling the left external auditory canal without erosion of the osseous margins of the canal
-Currently receiving IV zosyn for pseudomonal coverage, IV steroid, Tobradex drops, left ear wick in place
-On as needed pain regimen, pain has been improving; still has leukocytosis
-ENT following
Plan
-Transition to PO Ciprofloxacin 500 mg BID for 7 days
-Educated on avoiding divalent cations in diet with Cipro
-Rx prednisone 40 mgx3 days at discharge
-Tobradex ear drops TID for 7 days at discharge
#Hypertensive urgency from pain/anxiety
-BP still slightly elevated but improving as pain resolves
-C/W PRN hydralazine
#Leukocytosis
-Likely demargination from steroid use
-Infectious symptoms are improving
DVT ppx: SCDs
Diet: House
Dispo: DC home tomorrow
Code: Full
Anticipated Discharge: Today
Subjective/Interval History
-
Date of Service: February 17, 2024
No acute events. Feels much better today, No fevers or chills. Pain is significantly reduced.
Objective Data
-
Labs:
Laboratory Results
02/17/24
05:25
WBC 15.2 H
Hgb 13.4
Hct 40.1
Plt Count 457 H
Sodium 137
Potassium 5.0
Chloride 105
Carbon Dioxide 19 L
BUN 19 H
Creatinine 0.7
Glucose 133 H
Calcium 10.0
Vital Signs:
Vital Signs
Temp Pulse Resp BP Pulse Ox
97.6 F 74 14 149/88 99
02/17/24 07:15 02/17/24 07:15 02/17/24 07:15 02/17/24 07:15 02/17/24 07:15
I&O
02/16/24 02/17/24 02/18/24
06:59 06:59 06:59
Intake Total 2019 1400 / 1400
Balance 2019 1400 / 1400
Review of Systems
-
History Source: Patient
All other systems: Reviewed and negative
Constitutional: Reports No Symptoms
EENT: Reports No Symptoms Reported
Respiratory: Reports No Symptoms
Cardiac: Reports No Symptoms
Abdomen/GI: Reports No Symptoms
Musculoskeletal: Reports No Symptoms
Skin: Reports No Symptoms
Neuro: Reports No Symptoms
Physical Exam
-
General: No Apparent Distress, Comfortable and Obese
HEENT: Normocephalic, Atraumatic, Moist Mucous Membranes and Other (Minimal mastoid or tragal tenderness)
Respiratory: Clear to Auscultation
Cardiac: Regular Rhythm and S1/S2; Negative Murmur, Rub, JVD or Gallop
GI: Soft, Nontender, Nondistended and Normal Bowel Sounds
Musculoskeletal: No Clubbing, No Cyanosis, No Edema and Other (No gross deformity)
Skin: Warm and Dry; Negative Rash
Neuro: AO x 3, Nonfocal/Grossly Intact and Central Nerve's Intact
Hematologic / Lymphatic: No Lymphadenopathy
Data Reviewed
-
Labs: Labs Reviewed by me
--- NOTE | 2024-02-17 09:48 | W.DCSUMMARY ---
Discharge Summary
Discharge Data
Date of Admission: 02/14/24
Date of Discharge: 02/17/24
-
Pending Results: No
Hospital Course
Presented with Left ear pain and drainage. Failed out-patient course of Abx. CT with evidence of otitis externa, media, and acute mastoiditis. Started on IV cefepime for pseudomonal coverage, and IV steroids. Symptomatically improved with treatment.
ENT evaluated. Symptoms almost resolved by day of discharge. Residual leukocytosis per labs due to steroid use.
Discharge Plan
-
Patient Disposition: Home (Routine Discharge)
Discharge Diagnosis/Procedures: Acute Mastoiditis
Left Otitis Externa
Condition: Good
Diet: No restrictions
Additional Diets: Avoid Magnesium, Calcium supplements within 1 hour of taking ciprofloxacin
Activity: No restrictions
Driving Restrictions: As prior to admission
Bathing Restrictions: None
Referrals:
UNKNOWN - PT DOES,NOT KNOW [Family Provider] -
Additional Discharge Medication Instructions: Take ciprofloxacin 500 mg twice daily for 7 days after discharge
Take prednisone 40 mg for 3 days after discharge
Prescriptions:
New
meclizine 25 mg Tablet
25 mg PO Q8HPRN PRN (Reason: vertigo or dizziness) Qty: 0 0RF
tobramycin-dexamethasone 0.3-0.1 % Drops,Suspension
5 drp LEFT EAR TID Qty: 0 0RF
Control
1 tab PO HS Qty: 1 0RF
prednisone 20 mg tablet
40 mg PO DAILY 5 Days Qty: 10 0RF
ciprofloxacin HCl 500 mg tablet
500 mg PO Q12H 7 Days Qty: 14 0RF
acetaminophen 325 mg Tablet
650 mg PO Q6HPRN 5 Days 0RF
Discontinued
acetaminophen [Tylenol] 325 mg Tablet
650 mg PO Q6HPRN
ciprofloxacin HCl 750 mg Tablet
750 mg PO BID
Control
1 tab PO HS
Patient Comments:
02/14/24- patient has no ecw and not filled at [facility]
Discharge Orders:
Discharge Patient (As Directed); Ordered 02/17/24
Ordered By: Kev Rincon
Discharge Date and Time
Print Language: AZERI
--- NOTE | 2024-02-17 11:05 | CM ---
Patient seen at bedside with patient friend. Patient for discharge home with no needs. Patient indicated that she was for discharge home today. CM will continue to follow for discharge planning needs.
Plan; home with no needs.
[2024-02-17 11:39] VITALS: BP 169/105
== END 2024-02-17 12:21 | disposition home or self-care (01) | DRG 155 ==
LOC: 2 NORTH 18:53
PROVIDERS: Registered Nurse; ADMITTING PHYSICIAN Internal Medicine; ATTENDING PHYSICIAN Internal Medicine; CONSULT PHYSICIAN Internal Medicine Infectious Disease; CONSULT PHYSICIAN Otolaryngology; EMERGENCY PHYSICIAN Emergency Medicine
DX: H60.22 Malignant otitis externa, left ear (principal); H70.002 Acute mastoiditis without complications, left ear; I16.1 Hypertensive emergency; Z68.44 Body mass index [BMI] 60.0-69.9, adult; H66.92 Otitis media, unspecified, left ear; H60.12 Cellulitis of left external ear; F17.290 Nicotine dependence, other tobacco product, uncomplicated; D72.829 Elevated white blood cell count, unspecified; T38.0X5A Adverse effect of glucocorticoids and synthetic analogues, initial encounter; R00.0 Tachycardia, unspecified; B96.5 Pseudomonas (aeruginosa) (mallei) (pseudomallei) as the cause of diseases classified elsewhere; E66.9 Obesity, unspecified; J45.909 Unspecified asthma, uncomplicated
CPT/HCPCS: 70480; 80048; 80053; 85025; 85027; 85652; 86140; 96365; 96372; 96375; 99284

== ENCOUNTER 2025-03-04 09:06 | Inpatient (IN) | payer BC, SELFPAY ==
[2025-03-04] VITALS (8 sets, daily range): BP systolic 141–193; BP diastolic 82–119; BMI 63.3; BMI 62.9
--- NOTE | 2025-03-04 05:01 | ED.GENMED ---
History of Present Illness
<Yris Askew PA-C - Last Filed: 03/04/25 07:12>
General
Chief Complaint: Ear Problem
Source: patient
Exam Limitations: none
Time Seen by Provider: 03/04/25 04:59
Nursing documentation reviewed up to this point in time: agreed with
History of Present Illness
History of Present Illness:
Note:
CHIEF COMPLAINT(S)
Left ear pain and swelling, nasal congestion, difficulty breathing, and muffled hearing.
HISTORY OF PRESENT ILLNESS
The patient is a 24-year-old female who presents with left ear pain and swelling, nasal congestion, difficulty breathing, and muffled hearing. Two years ago, she was evaluated for ear pain at an urgent care facility, where the middle ear canal was
noted to be swollen, but the eardrum appeared normal. She was prescribed oral antibiotics (likely amoxicillin), and no ear drops were administered. The symptoms have progressively worsened, with noticeable swelling beginning yesterday, accompanied
by discharge from the left ear. Additionally, she experiences neck pain on the affected side, difficulty breathing through a stuffy nose, and feels unable to take a full breath.
The patient has a history of a severe illness requiring hospital admission, but she is unsure if her current symptoms are as severe. She reports no fever or pain behind the ear and denies any new symptoms until recently. Physical examination
revealed crusty and tender areas around the left ear with significant tenderness upon pressing certain areas.
The patient experiences significant nasal congestion and wheezing, previously associated with asthma. She reports nausea this morning and increased congestion, with wheezing beginning recently. In terms of symptom similarity to past experiences, the
patient states that her symptoms feel reminiscent of a prior exacerbation that required hospital admission.
REVIEW OF SYSTEMS
- Ear, Nose, and Throat: Left ear pain, swelling, and discharge. Neck pain and muffled hearing on the left side. Nasal congestion.
- Respiratory: Difficulty breathing, wheezing.
- Gastrointestinal: Nausea.
- General: No fever reported.
PHYSICAL EXAM
- Nursing notes reviewed and vital signs reviewed.
General: Patient is well appearing and in no acute distress; non-toxic
Skin: Warm and dry, no rashes or lesions
Head: Left mastoid tenderness to palpation
Eyes: Sclera non-icteric. EOMs intact.
Ears: Purulent drainage noted from the left ear, swollen external auditory canal with erythema
Cardiac: Tachycardia noted otherwise regular rhythm, no murmurs
Peripheral Vascular: No lower extremity swelling or edema
Pulm: Normal respiratory effort, scattered wheezing heard bilaterally
Neuro: CN II-XII intact, no focal neurologic deficits.
Psychiatric: Appropriate mood and affect.
PROBLEM LIST
Acute:
- Left ear pain and swelling (possible otitis externa)
- Nasal congestion
- Respiratory difficulty with wheezing
- Nausea
PLAN
- Administer Toradol through intravenous and provide fluids for rehydration.
- Perform a computed tomography scan to assess the severity of the condition, given the patient�s history.
- Initiate nebulizer treatment with a combination of albuterol and ipratropium to address wheezing and asthma symptoms.
- Zosyn
- TobraDex drops
DIFFERENTIAL DIAGNOSIS
The Differential Diagnosis includes, in no particular order and is not limited to:
- Otitis externa
- Upper respiratory tract infection
- Asthma exacerbation
- Allergic rhinitis
- Sinusitis
- Ear canal obstruction (e.g., impacted cerumen)
- Temporal arteritis (considered due to neck pain)
- Pharyngitis
- Mastoiditis
- Labyrinthitis
CHART REVIEW
Reviewed discharge summary from 02/17/2024 patient seen for acute otitis externa on the left, reviewed ER physician augmentation from 03/12/2023 patient seen for asthma
Review prior ENT treatment notes
MDM/DISPOSITION
The patient is a 24-year-old female who presents with left ear pain and swelling, nasal congestion, difficulty breathing, and muffled hearing. On physical exam she is afebrile but she is tachycardic and she has purulent drainage from the left ear.
CT scan reveals severe left otitis externa with extension deep cells consistent with left mastoiditis. Discussed case with ENT on-call. Will admit for IV antibiotics and ENT evaluation. Ear wick placed with TobraDex drops. Patient referred for
admission
Past History
<Yris Askew PA-C - Last Filed: 03/04/25 07:12>
Past History
ED Past Medical History: None
ED Past Surgical History: Tonsilectomy (2009)
Social History
Tobacco: Smoker
Alcohol: Occasional
Drug: None
Personal: Single
Living: with family
Employment: Employed
Family History
Family History: Other
Review of Systems
<Yris Askew PA-C - Last Filed: 03/04/25 07:12>
Review of Systems
All Other Systems: ROS reviewed and negative except as documented in HPI and ROS
Phy Exam
<SERENITY Anderson Last Filed: 03/04/25 07:12>
Physical Exam
Physical Exam:
see hpi
Course
<SERENITY Anderson Last Filed: 03/04/25 07:12>
Orders/Labs/Results
Orders:
Orders
03/04/25 05:16
0.9% Sodium Chloride 500 ml [Nss] 500 ml IV BOLUS
Ipratropium/Albuterol Sulfate [Duoneb] 3 ml INH R NOW STA
Ketorolac [Toradol] 15 mg IV NOW STA
03/04/25 05:23
CT Temporal-iac W/o Iv Contras Urgent
Comment:
Reason For Exam: left mastoid tenderness
03/04/25 05:30
C-Reactive Protein Urgent
Comment: ADDED
Complete Blood Count/With Diff Urgent
Comprehensive Metabolic Panel Urgent
Erythrocyte Sed Rate Urgent
Comment: ADDED
03/04/25 06:00
Add On- LAB Urgent
Tests Added?: ESR, CRP
03/04/25 06:03
Piperacillin/Tazo 3.375 Gram [Zosyn] 3.375 gram in 50 ml IV NOW
03/04/25 06:13
Tobramycin/Dexamethasone [Tobradex Eye Drops] See Dose Instructions LEFT EAR Q4H ONE
03/04/25 07:00
Tobramycin/Dexamethasone [Tobradex Eye Drops] See Dose Instructions LEFT EAR Q4H
Abnormal Lab Results
03/04/25
05:30
WBC 12.4 H 10^3/uL
(4.8-10.8)
Hgb 11.4 L g/dL
(12.0-16.0)
Hct 35.0 L %
(37.0-47.0)
MCV 79.0 L fL
(81.0-99.0)
MCH 25.7 L pg
(27.0-31.0)
MCHC 32.6 L g/dL
(33.0-37.0)
Absolute Neuts (auto) 8.3 H 10^3/uL
(1.4-6.5)
Absolute Monos (auto) 0.8 H 10^3/uL
(0.1-0.6)
ESR 37 H mm/hour
(0-20)
Chloride 109 H mmol/L
(98-107)
Carbon Dioxide 19 L mmol/L
(22-30)
Creatinine 0.5 L mg/dL
(0.6-1.0)
Glucose 145 H mg/dl
(70-99)
C-Reactive Protein 58.90 H mg/L
(0.0-10.00)
03/04/25 05:30
03/04/25 05:30
Vital Signs
Initial and Last Documented VS:
Initial Vital Signs
Temp Pulse Resp BP Pulse Ox
98.3 F 103 24 193/119 97
03/04/25 04:34 03/04/25 04:34 03/04/25 04:34 03/04/25 04:34 03/04/25 04:34
Last Documented Vital Signs
Temp Pulse Resp BP Pulse Ox
98.3 F 103 24 141/82 100
03/04/25 04:34 03/04/25 04:34 03/04/25 04:34 03/04/25 05:00 03/04/25 06:15
<Ruben Curran, DO - Last Filed: 03/04/25 06:14>
Orders/Labs/Results
Orders:
Orders
03/04/25 05:16
0.9% Sodium Chloride 500 ml [Nss] 500 ml IV BOLUS
Ipratropium/Albuterol Sulfate [Duoneb] 3 ml INH R NOW STA
Ketorolac [Toradol] 15 mg IV NOW STA
03/04/25 05:23
CT Temporal-iac W/o Iv Contras Urgent
Comment:
Reason For Exam: left mastoid tenderness
03/04/25 05:30
C-Reactive Protein Urgent
Comment: ADDED
Complete Blood Count/With Diff Urgent
Comprehensive Metabolic Panel Urgent
Erythrocyte Sed Rate Urgent
Comment: ADDED
03/04/25 06:00
Add On- LAB Urgent
Tests Added?: ESR, CRP
03/04/25 06:03
Piperacillin/Tazo 3.375 Gram [Zosyn] 3.375 gram in 50 ml IV NOW
03/04/25 06:13
Tobramycin/Dexamethasone [Tobradex Eye Drops] See Dose Instructions LEFT EAR Q4H ONE
03/04/25 07:00
Tobramycin/Dexamethasone [Tobradex Eye Drops] See Dose Instructions LEFT EAR Q4H
Abnormal Lab Results
03/04/25
05:30
WBC 12.4 H 10^3/uL
(4.8-10.8)
Hgb 11.4 L g/dL
(12.0-16.0)
Hct 35.0 L %
(37.0-47.0)
MCV 79.0 L fL
(81.0-99.0)
MCH 25.7 L pg
(27.0-31.0)
MCHC 32.6 L g/dL
(33.0-37.0)
Absolute Neuts (auto) 8.3 H 10^3/uL
(1.4-6.5)
Absolute Monos (auto) 0.8 H 10^3/uL
(0.1-0.6)
ESR 37 H mm/hour
(0-20)
Chloride 109 H mmol/L
(98-107)
Carbon Dioxide 19 L mmol/L
(22-30)
Creatinine 0.5 L mg/dL
(0.6-1.0)
Glucose 145 H mg/dl
(70-99)
C-Reactive Protein 58.90 H mg/L
(0.0-10.00)
03/04/25 05:30
03/04/25 05:30
Vital Signs
Initial and Last Documented VS:
Initial Vital Signs
Temp Pulse Resp BP Pulse Ox
98.3 F 103 24 193/119 97
03/04/25 04:34 03/04/25 04:34 03/04/25 04:34 03/04/25 04:34 03/04/25 04:34
Last Documented Vital Signs
Temp Pulse Resp BP Pulse Ox
98.3 F 103 24 141/82 100
03/04/25 04:34 03/04/25 04:34 03/04/25 04:34 03/04/25 05:00 03/04/25 06:15
<Yris Askew PA-C - Last Filed: 03/04/25 07:12>
*Pulse Oximetry
SaO2: 97
Oxygen Mode of Delivery: Room air
Patient hypoxic: no
*Critical Care Note
Total Time (30-74mins, 75-104mins- exclusive of procedures): Not Applicable
ED Attending Note
<Yris Askew PA-C - Last Filed: 03/04/25 07:12>
-
Portions of this chart may have been created with voice recognition software.� Occasional wrong word or��sound alike� substitutions may have occurred due to the inherent limitations of voice recognition software.
<Ruben Curran DO - Last Filed: 03/04/25 06:14>
ED Attending Note
Patient seen and examined by attending physician: Yes
I performed the substantive portion of visit, reviewed & personally made and approve the management plan that is documented in note by myself or RUSTY.: Yes
ED Attending Note:
I evaluated the patient at bedside. The patient has rather significant tenderness just inferior to the space between the mastoid and the earlobe. White count is higher than when she came in a year ago with similar symptoms treated with IV
antibiotics for pseudomonal coverage. She was given Zosyn here. Will discussed with ENT as she is again has rather significant opacification of the left-sided mastoid air cells.
Discharge Plan
Departure
Patient Disposition: Admit
Date of Disposition: 03/04/25
Time of Disposition: 07:04
Admit to: Med/Surg
Presentation/result/management discussed w/ accepting MD/DO: Hospitalist
Patient with high blood pressure during this ER visit?: No
Condition: Fair
Discharge Problem:
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
Prescriptions:
No Action
Control
1 tab PO HS Qty: 1 0RF
Referrals:
UNKNOWN - PT DOES,NOT KNOW [Family Provider]
Interventions
Interventions:
*Risk Screen - Suicide Last Done: 03/04/25 04:34
*Neglect/Abuse Screening Last Done: 03/04/25 04:34
*ED- Fall Risk Assessment Last Done: 03/04/25 04:34
*ED COVID-19 Vaccine History Last Done: 03/04/25 04:34
Discharge Date and Time
Print Language: VIETNAMESE
[2025-03-04] MEDS: NSS 500 IV (05:39)
[2025-03-04] MEDS: TORADOL 15 MG IV ×3 (05:40→20:09)
[2025-03-04] MEDS: DUONEB 3 ML INH (05:40)
[2025-03-04 05:41] LABS: Hematocrit 35.0 % (37.0-47.0); Hemoglobin 11.4 g/dL (12.0-16.0); Mean Corp Hgb Conc. 32.6 g/dL (33.0-37.0); Mean Corpuscular Volume 79.0 fL (81.0-99.0); Nucleated Red Blood Cells % 0 %; Platelet Count 344 10^3/uL (130-400); Red Cell Dist. Width 13.2 % (11.5-14.5)
[2025-03-04 06:21] LABS: ALT (SGPT) 18 U/L (0-35); AST (SGOT) 17 U/L (14-36); Albumin 4.0 g/dl (3.5-5.0); Alkaline Phosphatase 67 U/L (38-126); Blood Urea Nitrogen 9 mg/dl (7-17); Calcium 8.7 mg/dl (8.4-10.2); Carbon Dioxide 19 mmol/L (22-30); Chloride 109 mmol/L (98-107); Estimated Creatinine Clearance > 125 ml/min; Glucose 145 mg/dl (70-99); Potassium 4.1 mmol/L (3.5-5.1); Sodium 136 mmol/L (135-145); Total Protein 7.3 g/dl (6.3-8.2); eGFR > 60.00
[2025-03-04] MEDS: TOBRADEX EYE DROPS 5 DROP LEFT EAR (06:21)
[2025-03-04] MEDS: ZOSYN 50 IV ×2 (06:23→12:02)
[2025-03-04 06:25] LABS: C-Reactive Protein 58.90 mg/L (0.0-10.00)
--- NOTE | 2025-03-04 09:26 | CM ---
CM reviewed chart and met with pt bedside in ED. Pt lives with her parents in 4th floor apartment, has elevator access.
Independent in ADL, personal care and ambulation at baseline. No DME.
Works at [employer].
Pt states has not yet established care with PCP, continues to utilize Urgent Care when needed.
Pharmacy: [facility]
CM will continue to follow for all discharge planning needs.
--- NOTE | 2025-03-04 09:36 | HPS.HSE ---
Addendum entered and electronically signed by Wenceslao Avery MD 03/04/25 13:03:
Seen and examined by me independently in collaboration with the FP resident Roscoe Brumfield.
Past medical history/social history/medication/allergies reviewed.
Lab data and imaging data reviewed.
Patient with a prior history of malignant otitis externa with Pseudomonas came in with 3 days of rapidly progressive left ear pain swelling and nasal congestion. Clinical exam and radiological exam concerning for another episode of acute
necrotizing otitis externa. There are changes of the sigmoid plate of the left temporal lobe raising concern for osteomyelitis. She has associated sepsis with elevated heart rate and leukocytosis.
Admit to hospital. Start on IV Zosyn and topical tobramycin. Consult ENT and ID.
Add Toradol for pain management.
Speech eval as the infection is coming in the way of swallowing due to pain.
Original Note:
Family Physician
-
Family Physician: NOT KNOW UNKNOWN - PT DOES
Chief Complaint
-
, Left ear pain
History of Present Illness
This is a 24-year-old female with past medical history of asthma, otitis Externa who presents to [facility] complaining of left ear pain, swelling, nasal congestion. The patient reports symptoms started 3 days ago, and has rapidly worsened. She states
the pain initially started in the left ear accompanied with yellowish/greenish drainage. In addition, she admits pain in her jaw, neck and left side of her face. She reports symptoms are similar to the previous episode she had 1 year ago when she
came for an evaluation here. She admits headache, double vision, dizziness, mild left-sided facial numbness, feeling of fullness in her left ear, muffled hearing from the left ear. In addition, she admits nasal congestion, but denies any bleeding
episode. She denies fever she denies chills she denies unintentional weight loss, she denies fatigue.She denies recent dental procedure, tooth pain. Denies trauma to the ear canal.
Upon presentation to the ED, vitals with BP 193/119, pulse 103, temperature 98.3, respiratory 24, O2 sat 97% on room air. Laboratory showed WBC 12.4, hemoglobin 11.4, ESR 37, CRP 58.90. She was evaluated with a temporal bone CT upon presentation.
Medical History
Past Medical History
Past Medical History: Reports None
Past Surgical History: Reports Tonsilectomy (And adenoidectomy)
Social History
Tobacco: Vaping
Alcohol: Occasional
Drug: Marijuana
Personal: Single
Living: With Family
Family History
Family History: Not pertinent
Allergies / Home Medications
Allergies reflects when Allergies were last updated in [facility].
Home Medications with original date entered in [facility]
Allergy/Medication List:
Allergies
Allergy/AdvReac Type Severity Reaction Status Date / Time
bee venom protein (honey bee) Allergy Unknown Verified 03/04/25 04:34
fire ant Allergy Unknown Verified 03/04/25 04:34
shellfish derived Allergy Tongue Verified 03/04/25 04:34
Swelling
Home Medications
Control 1 tab PO HS contraception 03/04/25
Review of Systems
-
History Source: Patient
A 12 point ROS was completed and negative except as noted: Yes
Constitutional: Reports Other (All review of systems completed and negative except as documented in HPI)
Physical Exam
Vital Signs
Vital Signs
Temp Pulse Resp BP Pulse Ox
98.3 F 88 16 153/100 98
03/04/25 07:26 03/04/25 07:26 03/04/25 07:26 03/04/25 07:26 03/04/25 07:26
Physical Exam
General: Well Developed, Comfortable and Pain
HEENT: Other (Left ear wick in place, mastoid area tender and swollen)
Respiratory: Clear
Cardiac: S1/S2 and Regular Rhythm
GI: Soft, Non Tender, Non Distended and Normal Bowel Sounds
Musculoskeletal: No Edema
Skin: Warm and Dry
Neuro: Awake, Alert, Oriented and AO x 3; No Slurred Speech or Facial Droop
Psych: Calm
Laboratory Results
-
03/04/25 05:30
03/04/25 05:30
Laboratory Results
Total Bilirubin 0.4 mg/dl (0.2-1.3) 03/04/25 05:30
AST 17 U/L (14-36) 03/04/25 05:30
ALT 18 U/L (0-35) 03/04/25 05:30
Alkaline Phosphatase 67 U/L (38-126) 03/04/25 05:30
Impression/Plan
-
Assessment/plan
#Severe left necrotizing otitis externa with mastoiditis and otitis media
#Acute osteomyelitis of skull base
-Presents with left ear pain and drainage
-CT Temporal Bone SEVERE LEFT OTITIS EXTERNA (necrotizing otitis externa) with extension deep into the left mastoid air cells and middle ear cavity consistent with LEFT MASTOIDITIS and OTITIS MEDIA. Squamous cell carcinoma is an alternative
diagnostic possibility for the severe soft tissue thickening in the left external auditory canal and soft tissues of the left ear. Mild osseous destruction of the sigmoid plate suggesting acute osteomyelitis with a small 2 mm osseous dehiscence
adjacent to the sigmoid sinus. Severe thickening of the posterior nasopharyngeal soft tissues. Diagnostic possibilities are (1) enlargement of the adenoid tonsils or (2) squamous cell carcinoma. Mild left intraparotid and left cervical
lymphadenopathy. Moderate sphenoid sinusitis.
-Start antibiotics with IV Zosyn for pseudomonal coverage
-TobraDex drops, left ear wick
-Pain regimen
-Consult ENT
-ID consult
-If can obtain, consider culture of drainage
#Hypertensive urgency secondary to pain
Monitor BP
As needed IV hydralazine
#Obesity secondary to excessive calories
-Affects all aspect of care. Counselled on weight loss.
CODE STATUS full code
DVT prophylaxis SCDs
[2025-03-04] MEDS: ULTRAM 50 MG PO (10:51)
--- NOTE | 2025-03-04 11:15 | PTCARENOTE ---
Received pt from ER via stretcher, accompanied by ER staff. Pt AAO x3, DEWAYNE acosta, ambulatory to bed, no c/o weakness/dizziness. VSS. On room air- pulse ox 97%, no SOB noted. Abd obese, soft, BS (+)> Pt DTV; will void in BR. Afebrile; skin W/D/I.
Lt ear wick in place- no drainage noted. Oriented to 4east, currently resting in bed. Will continue to monitor.
--- NOTE | 2025-03-04 11:32 | CON.MD ---
Consultation - Medical
-
dictated.
severe L OE again, similar to last year.
CT looks similar to last year, I don't see any definitive bony erosion, no abscess.
I obtained cx and replaced wick.
continue tobradex drops, IV zosyn (or cefepime which worked well last year).
Dr. Rondon will follow.
Long-term she will need to keep water out of her ears and have them cleaned frequently.
She also has adenoid hypertrophy, similar to last year, and a deviated septum, with some increased nasal congestion today. mild L sphenoid sinusitis.
I ordered afrin for 3 days and she should f/u as outpt for nasopharyngoscopy
[2025-03-04 11:48] LABS: Glycohemoglobin (HgbA1c) 6.0 % (4.0-5.6)
[2025-03-04] MEDS: TOBRADEX EYE DROPS 4 DROP LEFT EAR ×4 (12:02→22:10)
[2025-03-04] MEDS: AFRIN NASAL SPRAY 2 SPRAYS NASAL (12:03)
[2025-03-04 12:33] LABS: HCG, Urine Qualitative Screen Negative
--- NOTE | 2025-03-04 13:41 | CON.ID ---
Consultation
-
Date/Time Consultation Requested: March 04, 2025 1004
Date/Time Consultation Performed: March 04, 2025 1343
Requesting Provider: Roscoe Feliz
Performing Provider: Dr. Gayatri Garcia
Reason for Consultation: Malignant otitis externa extending to temporal bone
Chief Complaint / Past History
Chief Complaint
Left ear, head, face pain
History of Present Illness
24-year-old female with history of Pseudomonas necrotizing left otitis externa, otitis media, mastoiditis, suspected osteomyelitis (after swimming) January 2024 for which she was hospitalized here. Infectious disease was not involved in the case at
the time. She received short course of IV cefepime in the hospital then discharged to home on 7-day course of ciprofloxacin. She was doing well until 3 days ago when she suddenly developed severe left ear pain, fast face pain, head pain similar,
similar symptoms as last year and therefore she came to the hospital today. Positive nasal congestion. Positive chills. Reports she swimming last week. Her mom states she had frequent ear infections when she was a child, every time after
swimming mom will put eardrops.
Past History
Additional Past Medical History:
left otitis externa, mastoiditis, suspected osteomyelitis January 2024
Allergy History:
bee venom protein (honey bee) Allergy (Verified 03/04/25 11:27)
Unknown
fire ant Allergy (Verified 03/04/25 11:27)
Unknown
shellfish derived Allergy (Verified 03/04/25 11:27)
Tongue Swelling
Medications Reviewed: Yes
Current Antibiotics:
Zosyn 3.375 g IV every 8 hours
Social History
Tobacco: Vaping
Alcohol: Occasional
Drug: Marijuana
Personal: Single
Living: With Family
Family History
Family History: Not Pertinent
Review of Systems
Review of Systems
General: Chills; Negative Fever or Change in Appetite
HEENT: Sinus Problems and Headache
Cardiovascular: Negative Chest Pain or Dyspnea
Respiratory: Negative Dyspnea or Cough
Gasteroenterology: Negative Nausea, Vomiting or Diarrhea
Genital / Urological: Negative Dysuria or Flank Pain
Endocrine: Negative Weakness
All systems: All other systems were reviewed and were negative
Vital Signs
Temp Pulse Resp BP Pulse Ox
98.2 F 104 18 181/110 97
03/04/25 10:01 03/04/25 10:01 03/04/25 10:01 03/04/25 10:01 03/04/25 11:51
Physical Exam
Physical Exam
Constitutional: Non-toxic
Head: Other (+ tenderness left mastoid, anterior to ear with left facial swelling)
Eyes: No Conjunctival Hemorrhage and Sclera Anicteric
Pulmonary: Clear
Gastrointestinal: Soft, Non Tender, Non Distended and Normal Bowel Sounds
Genito-Urinary: Negative CVA Tenderness
Extremities: Negative Edema
Neurological: AO x 3; Negative Meningeal Signs
Lab / Diagnostic Study Results
03/04/25 05:30
03/04/25 05:30
Abs Immat Gran (auto) 0.0 10^3/uL (0-0.05) 03/04/25 05:30
Absolute Neuts (auto) 8.3 10^3/uL (1.4-6.5) H 03/04/25 05:30
Absolute Lymphs (auto) 2.6 10^3/uL (1.2-3.4) 03/04/25 05:30
Absolute Monos (auto) 0.8 10^3/uL (0.1-0.6) H 03/04/25 05:30
Absolute Basos (auto) 0.1 10^3/uL (0-0.2) 03/04/25 05:30
Immature Gran % 0.3 % (0-0.5) 03/04/25 05:30
Neutrophils % 67.2 % (42.2-75.2) 03/04/25 05:30
Lymphocytes % 20.6 % (20.5-51.1) 03/04/25 05:30
Monocytes % 6.5 % (1.7-9.3) 03/04/25 05:30
Eosinophils % 5.0 % (0-6) 03/04/25 05:30
Basophils % 0.4 % (0-2) 03/04/25 05:30
ESR 37 mm/hour (0-20) H 03/04/25 05:30
C-Reactive Protein 58.90 mg/L (0.0-10.00) H 03/04/25 05:30
Microbiology Results
Micro:
03/04/25 11:57 Wound Culture - Pending
Head Gram Stain - Pending
03/04/25 CT a/p: SEVERE LEFT OTITIS EXTERNA (necrotizing otitis externa) with extension deep into the left mastoid air cells and middle ear cavity consistent with LEFT MASTOIDITIS and OTITIS MEDIA. Squamous cell carcinoma is an alternative diagnostic
possibility for the severe soft tissue thickening in the left external auditory canal and soft tissues of the left ear.
2. Mild osseous destruction of the sigmoid plate suggesting acute osteomyelitis with a small 2 mm osseous dehiscence adjacent to the sigmoid sinus.
3. Severe thickening of the posterior nasopharyngeal soft tissues. Diagnostic possibilities are (1) enlargement of the adenoid tonsils or (2) squamous cell carcinoma.
4. Mild left intraparotid and left cervical lymphadenopathy.
Assessment / Plan
# Severe L otitis externa, otitis media mastoiditis, acute osteo sigmoid plate/temporal bone
# Leukocytosis
# hx Pseudomonas necrotizing left otitis externa/media, mastoiditis, suspected osteo 01/2024 s/p 3d cefepime then 7d cipro
- Ear cx pending. Suspect Pseudomonas again. Of note pt recent swimming.
- Increase Zosyn to 4.5g IV q6h.
- Recommend 6 weeks of IV abx.
- Await cx data.
- Trend wbc
--- NOTE | 2025-03-04 15:32 | PTCARENOTE ---
Pt resting in bed since arrival to unit; still c/o Lt ear/facial pain- good effect with IV Toradol. VSS: BP 171/100; pt denies h/o HTN; stated 'It always goes up when I am in the hospital.' On room air- pulse ox98%, no SOB noted. Abd obese, soft,
janine regular diet. Voids in BR without difficulty. Lt ear wick in place; no drainage noted. Will continue to monitor.
[2025-03-04] MEDS: APRESOLINE 5 MG IV ×2 (16:06→23:17)
[2025-03-04] MEDS: FLUSH (NSS) 1 FLUSH IV (17:55)
[2025-03-04] MEDS: ZOSYN 100 IV ×2 (17:55→23:11)
--- NOTE | 2025-03-04 18:14 | PTOTSP ---
ST Acute Care Evaluation
Pt currently presents with fairly functional oropharyngeal and esophageal swallowing parameters. Pt with occasional pain/discomfort during mastication of solids - advised pt to try to choose softer items from the menu until able to tolerate from a
pain perspective. No overt s/s of penetration/aspiration observed at bedside.
Recommendations:
- Continue with regular solids (choose softer items), thin liquids, meds as tolerated.
- General aspiration and reflux precautions.
- [employer] team to sign off - skilled services not indicated at this time.
[2025-03-04] MEDS: AFRIN NASAL SPRAY 30 SPRAYS NASAL (20:07)
[2025-03-04] MEDS: TYLENOL 1000 MG PO (23:16)
[2025-03-05] VITALS (7 sets, daily range): BP systolic 129–192; BP diastolic 66–114
[2025-03-05] MEDS: TORADOL 15 MG IV ×3 (03:09→22:38)
[2025-03-05] MEDS: TOBRADEX EYE DROPS 4 DROP LEFT EAR ×6 (03:09→22:41)
[2025-03-05] MEDS: ZOSYN 100 IV ×3 (06:04→18:36)
[2025-03-05] MEDS: AFRIN NASAL SPRAY 2 SPRAYS NASAL (07:39)
[2025-03-05] MEDS: TYLENOL 1000 MG PO (07:54)
[2025-03-05 08:04] LABS: Hematocrit 36.4 % (37.0-47.0); Hemoglobin 11.8 g/dL (12.0-16.0); Mean Corp Hgb Conc. 32.4 g/dL (33.0-37.0); Mean Corpuscular Volume 79.6 fL (81.0-99.0); Nucleated Red Blood Cells % 0 %; Platelet Count 352 10^3/uL (130-400); Red Cell Dist. Width 13.0 % (11.5-14.5)
[2025-03-05] MEDS: APRESOLINE 5 MG IV ×2 (08:04→22:36)
[2025-03-05 08:26] LABS: Blood Urea Nitrogen 11 mg/dl (7-17); Calcium 8.9 mg/dl (8.4-10.2); Carbon Dioxide 20 mmol/L (22-30); Chloride 108 mmol/L (98-107); Estimated Creatinine Clearance > 125 ml/min; Glucose 122 mg/dl (70-99); Magnesium 1.9 mg/dl (1.6-2.3); Potassium 4.0 mmol/L (3.5-5.1); Sodium 137 mmol/L (135-145); eGFR > 60.00
--- NOTE | 2025-03-05 09:08 | W.PN.HOSP.TC ---
Today's Communication/Plan
-
Continue with IV Zosyn and otic tobramycin
Add as needed albuterol inhaler
Assessment / Plan
Assessment / Plan
Assessment/plan
#Severe left necrotizing otitis externa with mastoiditis and otitis media
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
-Presents with left ear pain and drainage
-CT Temporal Bone SEVERE LEFT OTITIS EXTERNA (necrotizing otitis externa) with extension deep into the left mastoid air cells and middle ear cavity consistent with LEFT MASTOIDITIS and OTITIS MEDIA. Squamous cell carcinoma is an alternative
diagnostic possibility for the severe soft tissue thickening in the left external auditory canal and soft tissues of the left ear. Mild osseous destruction of the sigmoid plate suggesting acute osteomyelitis with a small 2 mm osseous dehiscence
adjacent to the sigmoid sinus. Severe thickening of the posterior nasopharyngeal soft tissues. Diagnostic possibilities are (1) enlargement of the adenoid tonsils or (2) squamous cell carcinoma. Mild left intraparotid and left cervical
lymphadenopathy. Moderate sphenoid sinusitis.
-Appreciate ENT and ID input
-Prior ear culture showed Pseudomonas and Aerococcus. Cultures from this admission pending
-Continue with IV Zosyn for pseudomonal coverage
- Continue TobraDex drops, left ear wick
- Continue pain regimen
#Hypertensive urgency secondary to pain versus undiagnosed hypertension
Patient does not know what her normal blood pressures are outside the hospital
Monitor BP
As needed IV hydralazine
Will consider scheduled antihypertensives if readings remain high despite treating the pain and infection.
History of asthma
Currently wheezy
Denies shortness of breath, cough or sputum production
Will start on as needed inhalers and if remains symptomatic worse will consider chest x-ray
#Obesity secondary to excessive calories
-Affects all aspect of care. Counselled on weight loss.
CODE STATUS full code
DVT prophylaxis SCDs
Anticipated Discharge: > 48 hours
Subjective/Interval History
-
Date of Service: March 05, 2025
Patient still with left ear and left angle of the jaw pain but improving. No fever or chills.
Able to tolerate oral diet.
Known to have history of asthma and uses as needed inhaler at home. She recently ran out of it.
Today she feels wheezy. Denies any cough or phlegm. No chest pain.
Objective Data
-
Labs:
Laboratory Results
03/05/25
07:05
WBC 9.8
Hgb 11.8 L
Hct 36.4 L
Plt Count 352
Sodium 137
Potassium 4.0
Chloride 108 H
Carbon Dioxide 20 L
BUN 11
Creatinine 0.6
Glucose 122 H
Calcium 8.9
Vital Signs:
Vital Signs
Temp Pulse Resp BP Pulse Ox
97.6 F 96 18 179/101 98
03/05/25 07:50 03/05/25 07:50 03/05/25 07:50 03/05/25 08:04 03/05/25 07:55
I&O
03/04/25 03/05/25 03/06/25
06:59 06:59 06:59
Intake Total 2450 / 2450
Balance 2450 / 2450
Physical Exam
-
General: Comfortable
HEENT: Other (Extreme tenderness with left pinna manipulation. Swelling and tenderness in the preauricular area and angle of the jaw area.)
Respiratory: Wheezes (Bilateral) and Non Labored Respirations; Negative Accessory Resp Muscle Use
Cardiac: Regular Rhythm and S1/S2
GI: Soft
Neuro: AO x 3
Data Reviewed
-
Labs: Labs Reviewed by me
[2025-03-05] MEDS: ULTRAM 50 MG PO ×2 (10:39→20:48)
--- NOTE | 2025-03-05 12:22 | W.PN.ENT ---
Today's Communication
-
Continue IV antibiotic, continue wick and topical eardrops for 48 hours more.
Impression / Plan
-
24-year-old female with severe otitis externa/otitis media of left ear.
- History of similar episode 1 year ago.
- Patient seems to be better today after 24 hours of treatment.
- Continue Zosyn for 72 hours.
- Maintain wick and continue eardrops topically in left ear.
- Monitor for worsening changes.
- Hopefully patient will continue to improve over the next 48 hours.
- Plan on removing wick Friday morning and then continuing eardrops directly into canal.
- I would expect if patient continues to improve she could be discharged Friday on oral antibiotics as long as ID agrees.
- Patient will need close outpatient follow-up to ensure no further recurrences.
Subjective Data
-
Patient admitted yesterday for severe otitis externa/otitis media.
History of similar episode 1 year ago.
Has been on IV Zosyn and topical eardrops for 24 hours now.
States there is decreased pain overall.
Still some pain on left side of face.
Denies any fevers or chills.
Mild headache.
Patient has no other new complaints this morning.
Objective Data
-
Vital Signs
Temp Pulse Resp BP Pulse Ox
97.6 F 118 18 148/88 98
03/05/25 07:50 03/05/25 09:17 03/05/25 07:50 03/05/25 09:17 03/05/25 07:55
Intake & Output
03/04/25 03/05/25 03/06/25
06:59 06:59 06:59
Intake:
Oral fluids 2100 / 2100
IV piggybacks 350 / 350
Other:
Number of approximated MODERATE 3 1
amounts of urine
Lab Results
03/05/25 07:05
03/05/25 07:05
Calcium 8.9 mg/dl (8.4-10.2) 03/05/25 07:05
Magnesium 1.9 mg/dl (1.6-2.3) 03/05/25 07:05
Total Bilirubin 0.4 mg/dl (0.2-1.3) 03/04/25 05:30
AST 17 U/L (14-36) 03/04/25 05:30
ALT 18 U/L (0-35) 03/04/25 05:30
Alkaline Phosphatase 67 U/L (38-126) 03/04/25 05:30
Physical Exam
-
Afebrile, vital signs stable.
Neurologically intact.
Head normocephalic and atraumatic.
Right ear normal.
Left ear with wick in place in canal.
Mild mucopurulent drainage noted on wick.
Mastoid within normal limits, no erythema, fluctuance or tenderness.
Mild edema and tenderness at pretragal area on left side.
Exam otherwise within normal limits.
Data Reviewed
-
Radiology Results: Image Reviewed ( CT of temporal bones reviewed. No bony destruction to indicate malignant otitis externa.>)
[2025-03-05] MEDS: BENADRYL 25 MG IV (12:58)
[2025-03-05] MEDS: COMPAZINE 10 MG IV (12:58)
--- NOTE | 2025-03-05 15:31 | W.PN.ID1 ---
Date of Service
Date of Service: March 05, 2025
Today's Communication
Continue Zosyn.
Assessment / Plan
# Severe necrotizing L otitis externa, otitis media mastoiditis, acute osteo sigmoid plate/temporal bone; recent swimming
# Leukocytosis - resolved
# hx Pseudomonas necrotizing left otitis externa/media, mastoiditis, suspected osteo 01/2024
- Ear cx Pseudomonas
- Continue Zosyn to 4.5g IV q6h.
- Recommend 6 weeks of IV abx.
- On Friday, will start process of setting up home IV abx
- Follow clinically.
Chief Complaint
-: Other (otitis externa)
Subjective / Review of Systems
Left ear/face pain slightly better.
Vital Signs / Physical Exam
Vital Signs
Vital Signs
Temp Pulse Resp BP Pulse Ox
97.6 F 100 16 148/88 98
03/05/25 07:50 03/05/25 13:39 03/05/25 13:39 03/05/25 09:17 03/05/25 13:39
Physical Exam
Constitutional: No Acute Distress
Head: Other (Left mastoid tenderness, left facial tenderness/induration)
Cardiovascular: Regular Rate and S1/S2
Gastrointestinal: Soft, Non Tender, Non Distended and Normal Bowel Sounds
Extremities: Negative Edema
Neurological: AO x 3
Objective Data
Lab Data
Lab Results
03/05/25 07:05
03/05/25 07:05
ESR 37 mm/hour (0-20) H 03/04/25 05:30
Estimated Creat Clear > 125 ml/min 03/05/25 07:05
Total Bilirubin 0.4 mg/dl (0.2-1.3) 03/04/25 05:30
AST 17 U/L (14-36) 03/04/25 05:30
ALT 18 U/L (0-35) 03/04/25 05:30
Alkaline Phosphatase 67 U/L (38-126) 03/04/25 05:30
C-Reactive Protein 58.90 mg/L (0.0-10.00) H 03/04/25 05:30
Most recent labs reviewed.
Micro Results:
03/04/25 11:57 Wound Culture - Preliminary
Head Pseudomonas aeruginosa
Gram Stain - Preliminary
03/04/25 CT a/p: SEVERE LEFT OTITIS EXTERNA (necrotizing otitis externa) with extension deep into the left mastoid air cells and middle ear cavity consistent with LEFT MASTOIDITIS and OTITIS MEDIA. Squamous cell carcinoma is an alternative diagnostic
possibility for the severe soft tissue thickening in the left external auditory canal and soft tissues of the left ear.
2. Mild osseous destruction of the sigmoid plate suggesting acute osteomyelitis with a small 2 mm osseous dehiscence adjacent to the sigmoid sinus.
3. Severe thickening of the posterior nasopharyngeal soft tissues. Diagnostic possibilities are (1) enlargement of the adenoid tonsils or (2) squamous cell carcinoma.
4. Mild left intraparotid and left cervical lymphadenopathy.
[2025-03-05] MEDS: AFRIN NASAL SPRAY 60 SPRAYS NASAL (20:01)
[2025-03-05] MEDS: FLUSH (NSS) 3 FLUSH IV (22:37)
[2025-03-06] MEDS: FLUSH (NSS) 2 FLUSH IV ×2 (00:23→05:53)
[2025-03-06] MEDS: ZOSYN 100 IV ×5 (00:23→23:37)
[2025-03-06 00:32] VITALS: BP 158/105
[2025-03-06] MEDS: TOBRADEX EYE DROPS 4 DROP LEFT EAR ×6 (03:07→23:29)
[2025-03-06 07:00] VITALS: BP 167/100
[2025-03-06] MEDS: AFRIN NASAL SPRAY 2 SPRAYS NASAL ×2 (07:39→19:36)
[2025-03-06] MEDS: APRESOLINE 5 MG IV ×3 (07:53→23:31)
--- NOTE | 2025-03-06 12:43 | W.PN.HOSP.TC ---
Today's Communication/Plan
-
Assessment / Plan
Assessment / Plan
Assessment/plan
#Severe left necrotizing otitis externa with mastoiditis and otitis media
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
-Presents with left ear pain and drainage
-CT Temporal Bone SEVERE LEFT OTITIS EXTERNA (necrotizing otitis externa) with extension deep into the left mastoid air cells and middle ear cavity consistent with LEFT MASTOIDITIS and OTITIS MEDIA. Squamous cell carcinoma is an alternative
diagnostic possibility for the severe soft tissue thickening in the left external auditory canal and soft tissues of the left ear. Mild osseous destruction of the sigmoid plate suggesting acute osteomyelitis with a small 2 mm osseous dehiscence
adjacent to the sigmoid sinus. Severe thickening of the posterior nasopharyngeal soft tissues. Diagnostic possibilities are (1) enlargement of the adenoid tonsils or (2) squamous cell carcinoma. Mild left intraparotid and left cervical
lymphadenopathy. Moderate sphenoid sinusitis.
-Appreciate ENT and ID input
-Prior ear culture showed Pseudomonas and Aerococcus. Cultures from this admission pending
-Continue with IV Zosyn for pseudomonal coverage
- Continue TobraDex drops, left ear wick
- Continue pain regimen
#Hypertensive urgency secondary to pain versus undiagnosed hypertension
Patient does not know what her normal blood pressures are outside the hospital
Monitor BP
As needed IV hydralazine
Will consider scheduled antihypertensives if readings remain high despite treating the pain and infection.
History of asthma
Currently wheezy
Denies shortness of breath, cough or sputum production
Will start on as needed inhalers and if remains symptomatic worse will consider chest x-ray
#Obesity secondary to excessive calories
-Affects all aspect of care. Counselled on weight loss.
CODE STATUS full code
DVT prophylaxis SCDs
Anticipated Discharge: 24 - 48 hours
Subjective/Interval History
-
Date of Service: March 06, 2025
Seen and examined. No new complaints. No acute overnight events.
Objective Data
-
Vital Signs:
Vital Signs
Temp Pulse Resp BP Pulse Ox
98.3 F 123 16 167/100 96
03/06/25 07:00 03/06/25 07:00 03/06/25 07:00 03/06/25 07:53 03/06/25 07:45
I&O
03/05/25 03/06/25 03/07/25
06:59 06:59 06:59
Intake Total 2450 / 2450 1160 / 1160
Balance 2450 / 2450 1160 / 1160
Physical Exam
-
General: Well Developed and Well Nourished
HEENT: Normocephalic and Atraumatic; Negative Ears Appear Normal (Left pinna manipulation tenderness, swelling and tenderness in the preauricular area and the angle of the jaw), Deaf or Hearing Impaired
Respiratory: Clear to Auscultation; Negative Wheezes or Crackles
Cardiac: Regular Rhythm and S1/S2
GI: Soft, Nontender, Nondistended and Normal Bowel Sounds
Musculoskeletal: No Clubbing, No Cyanosis and No Edema
Neuro: Awake, Alert, AO x 3 and No Motor Deficits
Psych: Calm
--- NOTE | 2025-03-06 14:16 | CM ---
Patient seen at bedside on . patient given information about residency clinic and patient indicated that she was uncertain about recommendations for discharge. CM will continue to follow for discharge planning needs.
Plan; home with family watch for VN needs; watch for possible Antibiotic needs.
[2025-03-06 15:15] VITALS: BP 163/98
[2025-03-06] MEDS: TYLENOL 1000 MG PO (19:31)
[2025-03-06 23:01] VITALS: BP 171/121
[2025-03-07] MEDS: TORADOL 15 MG IV (00:52)
[2025-03-07] MEDS: TYLENOL 1000 MG PO ×2 (02:04→19:09)
[2025-03-07] MEDS: TOBRADEX EYE DROPS 4 DROP LEFT EAR ×6 (02:18→22:36)
[2025-03-07] MEDS: ZOSYN 100 IV (06:27)
[2025-03-07] MEDS: AFRIN NASAL SPRAY 2 SPRAYS NASAL (08:01)
[2025-03-07 08:06] VITALS: BP 152/85
[2025-03-07 08:09] LABS: Hematocrit 38.7 % (37.0-47.0); Hemoglobin 12.5 g/dL (12.0-16.0); Mean Corp Hgb Conc. 32.3 g/dL (33.0-37.0); Mean Corpuscular Volume 80.0 fL (81.0-99.0); Platelet Count 411 10^3/uL (130-400); Red Cell Dist. Width 12.9 % (11.5-14.5)
--- NOTE | 2025-03-07 08:33 | W.PN.ENT ---
Today's Communication
-
Patient continues to improve. Continue antibiotics as per ID. Continue topical eardrops.
Impression / Plan
-
24-year-old female with severe otitis externa/otitis media of left ear.
- History of similar episode 1 year ago.
- Patient has improved on IV antibiotics and topical drops over the last 3 days.
- Wick has now fallen out.
- Would continue topical eardrops directly into ear canal twice daily.
- Culture appreciated, positive for Pseudomonas.
- I doubt the patient has true malignant otitis externa.
- She more likely has severe otitis externa caused by Pseudomonas.
- I do think she should be treated with a long course of antibiotics.
- If ID feels it is appropriate they can treat her with 6 weeks of intravenous antipseudomonal antibiotics.
- Alternatively, could consider Cipro 750 mg twice daily for 4 to 6 weeks.
- Patient will continue eardrops during this time as well.
- Patient should follow-up in the office in 2 weeks to be reevaluated.
- Has adenoid hypertrophy on CT scan, will require nasal endoscopy in the office.
- Patient understands she should keep her ear dry.
- Will continue to follow.
Subjective Data
-
Patient with improved pain today.
Wick fell out last night.
Minimal drainage from left ear.
Ear does feel clogged.
Patient still with some left-sided head pain intermittently, albeit improved overall.
Denies any fevers or chills.
Objective Data
-
Vital Signs
Temp Pulse Resp BP Pulse Ox
98.3 F 90 18 152/85 98
03/07/25 08:06 03/07/25 08:06 03/07/25 08:06 03/07/25 08:06 03/07/25 08:06
Intake & Output
03/06/25 03/07/25 03/08/25
06:59 06:59 06:59
Intake:
Oral fluids 960 / 960 960 / 960
IV piggybacks 200 / 200
Other:
Number of approximated MODERATE 1 3
amounts of urine
Number of approximated LARGE 2 1
amounts of urine
Lab Results
03/07/25 07:57
Calcium 8.9 mg/dl (8.4-10.2) 03/05/25 07:05
Magnesium 1.9 mg/dl (1.6-2.3) 03/05/25 07:05
Total Bilirubin 0.4 mg/dl (0.2-1.3) 03/04/25 05:30
AST 17 U/L (14-36) 03/04/25 05:30
ALT 18 U/L (0-35) 03/04/25 05:30
Alkaline Phosphatase 67 U/L (38-126) 03/04/25 05:30
Physical Exam
-
Afebrile, vital signs stable.
Head normocephalic and atraumatic.
Right ear clear.
Left ear with no wick in place.
Left ear canal with mild to moderate edema, mild exudate present, mild erythema.
No granulation tissue present.
TM obscured but appears thickened.
Middle ear cavity not visible on left side.
Left mastoid without any erythema or tenderness.
Mild pain at left tragus.
Nasal cavity and oral cavity clear.
Data Reviewed
-
Micro Results: Report Reviewed
[2025-03-07 08:40] LABS: Blood Urea Nitrogen 13 mg/dl (7-17); Calcium 9.3 mg/dl (8.4-10.2); Carbon Dioxide 20 mmol/L (22-30); Chloride 107 mmol/L (98-107); Estimated Creatinine Clearance > 125 ml/min; Glucose 131 mg/dl (70-99); Potassium 4.2 mmol/L (3.5-5.1); Sodium 138 mmol/L (135-145); eGFR > 60.00
--- NOTE | 2025-03-07 10:55 | W.PN.ID1 ---
Date of Service
Date of Service: March 07, 2025
Today's Communication
See below.
Assessment / Plan
# Severe necrotizing L otitis externa, otitis media mastoiditis, acute osteo sigmoid plate/temporal bone; recent swimming
# Leukocytosis - resolved
# hx Pseudomonas necrotizing left otitis externa/media, mastoiditis, suspected osteo 01/2024
- Ear cx: Pseudomonas
- Replace Zosyn to 4.5g IV q6h with cefepime for ease of administration
- Recommend cefepime 2g IV q8h x6 weeks through 04/14/25.
- Follow weekly CBC/diff, CMP, CRP
- Place PICC
- Home Infusion sheet submitted to Benefits Clerk.
Chief Complaint
-: Other (otitis externa)
Subjective / Review of Systems
Feeling much improved. Ear less pain.
Vital Signs / Physical Exam
Vital Signs
Vital Signs
Temp Pulse Resp BP Pulse Ox
98.3 F 90 18 152/85 98
03/07/25 08:06 03/07/25 08:06 03/07/25 08:06 03/07/25 08:06 03/07/25 08:06
Physical Exam
Constitutional: No Acute Distress
Head: Other (Left mastoid minimal, left facial tenderness/induration, resolving)
Cardiovascular: Regular Rate and S1/S2
Gastrointestinal: Soft, Non Tender, Non Distended and Normal Bowel Sounds
Extremities: Negative Edema
Neurological: AO x 3
Objective Data
Lab Data
Lab Results
03/07/25 07:57
03/07/25 07:57
ESR 37 mm/hour (0-20) H 03/04/25 05:30
Estimated Creat Clear > 125 ml/min 03/07/25 07:57
Total Bilirubin 0.4 mg/dl (0.2-1.3) 03/04/25 05:30
AST 17 U/L (14-36) 03/04/25 05:30
ALT 18 U/L (0-35) 03/04/25 05:30
Alkaline Phosphatase 67 U/L (38-126) 03/04/25 05:30
C-Reactive Protein 58.90 mg/L (0.0-10.00) H 03/04/25 05:30
Most recent labs reviewed.
Micro Results:
03/04/25 11:57 Wound Culture - Preliminary
Head Pseudomonas aeruginosa
Gram Stain - Preliminary
03/04/25 CT a/p: SEVERE LEFT OTITIS EXTERNA (necrotizing otitis externa) with extension deep into the left mastoid air cells and middle ear cavity consistent with LEFT MASTOIDITIS and OTITIS MEDIA. Squamous cell carcinoma is an alternative diagnostic
possibility for the severe soft tissue thickening in the left external auditory canal and soft tissues of the left ear.
2. Mild osseous destruction of the sigmoid plate suggesting acute osteomyelitis with a small 2 mm osseous dehiscence adjacent to the sigmoid sinus.
3. Severe thickening of the posterior nasopharyngeal soft tissues. Diagnostic possibilities are (1) enlargement of the adenoid tonsils or (2) squamous cell carcinoma.
4. Mild left intraparotid and left cervical lymphadenopathy.
--- NOTE | 2025-03-07 13:04 | CM ---
Received TT from ID, patient will need to go home with IV ABX, Cefepime 2g IV 8 end date 04/15/2025. Placed a call to Fozia at [facility] [phone] who stated that they will not be able to mix the medication until tomorrow morning due to
inability to access their lab while it undergoes a cleaning. Fozia stated that she can be in tomorrow to teach patient and obtain medication. Will fax PICC line information when available. All other necessary information has been sent to Fozia at
[phone].
Patient updated and agreeable to plan.
Will update ID.
Plan: Case management will continue to follow and assist with discharge planning. Home with IV ABX.
[2025-03-07] MEDS: MAXIPIME 2000 MG IV ×2 (15:29→22:36)
[2025-03-07] MEDS: STERILE WATER FOR INJECTION 10 ML IV ×2 (15:29→22:36)
[2025-03-07] MEDS: APRESOLINE 5 MG IV ×2 (15:32→23:46)
[2025-03-07 16:17] VITALS: BP 180/86
--- NOTE | 2025-03-07 17:02 | W.PN.HOSP.TC ---
Today's Communication/Plan
-
Assessment / Plan
Assessment / Plan
Assessment/plan
Severe left-sided otitis external
On cefepime
Per ID will need 6 weeks of IV antibiotics
PICC line ordered, ID submitted script
Will need to continue all otic drops per ENT recommendations
HTN
Conitnue antihypertensives
History of asthma
No wheezing
Continue inhalers
Obesity secondary to excessive calories
Discussed dietary exercise modification
Outpatient bariatric follow-up
Outpatient GLP-1 agonist
BRUNO
Will need continued outpatient follow-up with psychiatrist
Anticipated Discharge: 24 - 48 hours
Subjective/Interval History
-
Date of Service: March 07, 2025
Seen and examined. No new complaints. No acute overnight events.
States that she is feeling significantly better. Pain and swelling on the left side of face improved
Did note some drainage yellow clear from the left ear next
Objective Data
-
Labs:
Laboratory Results
03/07/25
07:57
WBC 7.9
Hgb 12.5
Hct 38.7
Plt Count 411 H
Sodium 138
Potassium 4.2
Chloride 107
Carbon Dioxide 20 L
BUN 13
Creatinine 0.7
Glucose 131 H
Calcium 9.3
Vital Signs:
Vital Signs
Temp Pulse Resp BP Pulse Ox
98.8 F 104 18 180/86 98
03/07/25 16:17 03/07/25 16:17 03/07/25 16:17 03/07/25 16:17 03/07/25 16:17
I&O
03/06/25 03/07/25 03/08/25
06:59 06:59 06:59
Intake Total 1160 / 1160 960 / 960 480 / 480
Balance 1160 / 1160 960 / 960 480 / 480
Physical Exam
-
General: Well Developed and Well Nourished
HEENT: Normocephalic and Atraumatic
Respiratory: Clear to Auscultation
Cardiac: Regular Rhythm
GI: Soft, Nontender and Nondistended
Musculoskeletal: No Clubbing, No Cyanosis and No Edema
Neuro: Awake, Alert and AO x 3
Psych: Calm
[2025-03-07 23:18] VITALS: BP 167/110
[2025-03-08] MEDS: TOBRADEX EYE DROPS 4 DROP LEFT EAR ×4 (04:15→15:43)
[2025-03-08 05:04] LABS: Hematocrit 37.0 % (37.0-47.0); Hemoglobin 12.0 g/dL (12.0-16.0); Mean Corp Hgb Conc. 32.4 g/dL (33.0-37.0); Mean Corpuscular Volume 79.2 fL (81.0-99.0); Platelet Count 380 10^3/uL (130-400); Red Cell Dist. Width 13.1 % (11.5-14.5)
[2025-03-08 05:28] LABS: Blood Urea Nitrogen 13 mg/dl (7-17); Calcium 8.7 mg/dl (8.4-10.2); Carbon Dioxide 19 mmol/L (22-30); Chloride 110 mmol/L (98-107); Estimated Creatinine Clearance > 125 ml/min; Glucose 97 mg/dl (70-99); Potassium 4.4 mmol/L (3.5-5.1); Sodium 138 mmol/L (135-145); eGFR > 60.00
[2025-03-08] MEDS: MAXIPIME 2000 MG IV ×2 (06:00→14:00)
[2025-03-08] MEDS: STERILE WATER FOR INJECTION 10 ML IV ×2 (06:01→14:01)
[2025-03-08 07:20] VITALS: BP 141/82
[2025-03-08] MEDS: TYLENOL 1000 MG PO (09:39)
--- NOTE | 2025-03-08 09:49 | PN.CDI ---
CDI
- -
CDI:
Physician Documentation Request
Admit Date: 03/04/25 09:06
Dear Doctor Miguel,
Patient admitted with severe left-sided otitis external.
03/04 CT -IMPRESSION: 1. SEVERE LEFT OTITIS EXTERNA (necrotizing otitis externa) with extension deep into the left mastoid air cells and middle ear cavity consistent with LEFT MASTOIDITIS and OTITIS MEDIA.
03/07 ID note, 'Severe necrotizing L otitis externa, otitis media mastoiditis, acute osteo sigmoid plate/temporal bone.... Recommend cefepime 2g IV q8h x6 weeks through 04/14/25.'
On admission, WBC 12.4 and HR> 90.
Please clarify which of the following most accurately describes the status of the patient's infection:
Sepsis, POA
Severe left sided otitis externa only
Other
Sepsis
- Systemic manifestations of infection, with 2 or more SIRS criteria which include:
- Fever >100.9 degrees F or hypothermia < 96.8 degrees F
- Leukocytosis - WBC > 12,000 or leukopenia - WBC < 4,000 or > 10% bands
- Tachycardia > 90 beats per minute
- Tachypnea - RR > 20 breaths per minute or PaCO2 , 32mmHg
Source: Merck Manual 2013
- Indicate the known or suspected organism
- Indicate the known or suspected underlying infection, such as otitis externa
Localized Infection Only, Without Systemic Illness
- indicate the site/source, such as otitis externa
Other
Use of terms such as suspected, likely, concern for, or probable (associated with a specific diagnosis that is being evaluated, monitored, or treated as if it exists) are acceptable and can be coded in the inpatient setting, when documented at the
time of discharge.
Thank you,
Rabia DANIELSN,RN,CCDS
CDI Specialist
Available via tiger text
Please use your independent medical judgment in providing your response.
--- NOTE | 2025-03-08 11:21 | W.PN.ID1 ---
Date of Service
Date of Service: March 08, 2025
Today's Communication
DC home when Home IV abx set up.
Assessment / Plan
# Severe necrotizing L otitis externa, otitis media mastoiditis, acute osteo sigmoid plate/temporal bone; recent swimming
# Leukocytosis - resolved
# hx Pseudomonas necrotizing left otitis externa/media, mastoiditis, suspected osteo 01/2024
- Ear cx: Pseudomonas
- Replace Zosyn to 4.5g IV q6h with cefepime for ease of administration
- Recommend cefepime 2g IV q8h x6 weeks through 04/14/25.
- Follow weekly CBC/diff, CMP, CRP
- PICC in place
- Home Infusion sheet submitted to Certified Surgical Technician.
Chief Complaint
-: Other (otitis externa)
Subjective / Review of Systems
Feels well. Ready to go home.
Vital Signs / Physical Exam
Vital Signs
Vital Signs
Temp Pulse Resp BP Pulse Ox
98.6 F 110 18 141/82 100
03/08/25 07:20 03/08/25 07:20 03/08/25 07:20 03/08/25 07:20 03/08/25 07:20
Physical Exam
Constitutional: No Acute Distress
Head: Other (Left mastoid minimal, left facial tenderness/induration, resolved)
Cardiovascular: Regular Rate and S1/S2
Gastrointestinal: Soft, Non Tender, Non Distended and Normal Bowel Sounds
Extremities: Negative Edema
Neurological: AO x 3
Lines: PICC (RUE)
Objective Data
Lab Data
Lab Results
03/08/25 04:32
03/08/25 04:32
ESR 37 mm/hour (0-20) H 03/04/25 05:30
Estimated Creat Clear > 125 ml/min 03/08/25 04:32
Total Bilirubin 0.4 mg/dl (0.2-1.3) 03/04/25 05:30
AST 17 U/L (14-36) 03/04/25 05:30
ALT 18 U/L (0-35) 03/04/25 05:30
Alkaline Phosphatase 67 U/L (38-126) 03/04/25 05:30
C-Reactive Protein 58.90 mg/L (0.0-10.00) H 03/04/25 05:30
Most recent labs reviewed.
Micro Results:
03/04/25 11:57 Wound Culture - Final
Head Pseudomonas aeruginosa
Gram Stain - Final
03/04/25 CT a/p: SEVERE LEFT OTITIS EXTERNA (necrotizing otitis externa) with extension deep into the left mastoid air cells and middle ear cavity consistent with LEFT MASTOIDITIS and OTITIS MEDIA. Squamous cell carcinoma is an alternative diagnostic
possibility for the severe soft tissue thickening in the left external auditory canal and soft tissues of the left ear.
2. Mild osseous destruction of the sigmoid plate suggesting acute osteomyelitis with a small 2 mm osseous dehiscence adjacent to the sigmoid sinus.
3. Severe thickening of the posterior nasopharyngeal soft tissues. Diagnostic possibilities are (1) enlargement of the adenoid tonsils or (2) squamous cell carcinoma.
4. Mild left intraparotid and left cervical lymphadenopathy.
--- NOTE | 2025-03-08 13:30 | W.DCSUMMARY ---
Addendum entered and electronically signed by Ghulam Rivera MD 03/08/25 15:00:
sepsis
Original Note:
Discharge Summary
Discharge Data
Date of Admission: 03/04/25
Date of Discharge: 03/08/25
-
Pending Results: No
Hospital Course
24-year-old female with past medical history of asthma, otitis Externa
Presented with complaints of left ear pain swelling nasal congestion that began 3 days ago and rapidly worsened with associated yellow/green discharge. Evaluated by ENT suspect severe left otitis externa�recurrent. Started on cefepime. Urine
culture Pseudomonas. Consulted infectious diseases recommended 6 weeks of IV antibiotics until April 14, 2025 and would continue otic drops until IV antibiotics have been completed. PICC line placed home infusion set up. Outpatient ENT
follow-up.
CT Temporal bone
IMPRESSION:
1. SEVERE LEFT OTITIS EXTERNA (necrotizing otitis externa) with extension deep into the left mastoid air cells and middle ear cavity consistent with LEFT MASTOIDITIS and OTITIS MEDIA. Squamous cell carcinoma is an alternative diagnostic
possibility for the severe soft tissue thickening in the left external auditory canal and soft tissues of the left ear.
2. Mild osseous destruction of the sigmoid plate suggesting acute osteomyelitis with a small 2 mm osseous dehiscence adjacent to the sigmoid sinus.
3. Severe thickening of the posterior nasopharyngeal soft tissues. Diagnostic possibilities are (1) enlargement of the adenoid tonsils or (2) squamous cell carcinoma.
4. Mild left intraparotid and left cervical lymphadenopathy.
5. Moderate sphenoid sinusitis.
Seen on the day of discharge which was 03/08/2025. No new complaints. No acute overnight events.
NAD
Scleral Anicteric
MMM
No JVD
CTABL
RRR, S1/S2
Obese, soft, NT, ND, BS+
Warm, Dry
AAOx3
Calm
More than 30 minutes spent in discharge including
Final examination of the patient
Summarizing hospital stay
Instructions for continuing care to all relevant caregivers
Preparation of discharge records, prescriptions, and referral forms
Total time spent (in minutes): 33mins
Discharge Plan
-
Patient Disposition: Home (Routine Discharge)
Discharge Diagnosis/Procedures: Severe Left Otitis Externa
Condition: Good
Diet: As tolerated
Activity: As tolerated
Activity Restrictions/Additional Instructions:
Presented with complaints of left ear pain swelling nasal congestion that began 3 days ago and rapidly worsened with associated yellow/green discharge. Evaluated by ENT suspect severe left otitis externa�recurrent. Started on cefepime. Urine
culture Pseudomonas. Consulted infectious diseases recommended 6 weeks of IV antibiotics until April 14, 2025 and would continue otic drops until IV antibiotics have been completed. PICC line placed home infusion set up. Outpatient ENT
follow-up.
CT Temporal bone
IMPRESSION:
1. SEVERE LEFT OTITIS EXTERNA (necrotizing otitis externa) with extension deep into the left mastoid air cells and middle ear cavity consistent with LEFT MASTOIDITIS and OTITIS MEDIA. Squamous cell carcinoma is an alternative diagnostic
possibility for the severe soft tissue thickening in the left external auditory canal and soft tissues of the left ear.
2. Mild osseous destruction of the sigmoid plate suggesting acute osteomyelitis with a small 2 mm osseous dehiscence adjacent to the sigmoid sinus.
3. Severe thickening of the posterior nasopharyngeal soft tissues. Diagnostic possibilities are (1) enlargement of the adenoid tonsils or (2) squamous cell carcinoma.
4. Mild left intraparotid and left cervical lymphadenopathy.
5. Moderate sphenoid sinusitis.
Referrals:
Chase Franklin MD [Active, Otology] - in one to two weeks
UNKNOWN - PT DOES,NOT KNOW [Family Provider]
Gayatri Garcia MD [Active, Infectious Diseases] - in one month
Prescriptions:
New
tobramycin-dexamethasone 0.3-0.1 % Drops,Suspension
5 drp LEFT EAR TID Qty: 10 2RF
cefepime 2 gram Recon Soln
2,000 mg IV Q8H
polyethylene glycol 3350 17 gram Powder In Packet
17 g PO DAILYPRN PRN (Reason: constipation) Qty: 30 0RF
Continued
Control
1 tab PO HS
Patient Comments:
no pharamcy records
Discharge Orders:
Discharge Patient (As Directed); Ordered 03/08/25
Ordered By: Ghulam Rivera
Discharge Date and Time
Print Language: KOREAN
[2025-03-08] MEDS: FLUSH (NSS) 2 FLUSH IV (14:01)
--- NOTE | 2025-03-08 15:01 | CM ---
Fozia from [facility] in to meet with patient and provide instructions as to what she needs to do after discharge. RN aware.
Plan: Case management will continue to follow and assist with discharge planning. Home with IV ABX.
[2025-03-08 15:48] VITALS: BP 157/100
--- NOTE | 2025-03-08 17:36 | W.PN.ENT ---
Today's Communication
-
IV antibiotics at home, continue topical eardrops, keep ear dry. Follow-up in office in 2 to 3 weeks.
Impression / Plan
-
24-year-old female with severe otitis externa/otitis media of left ear.
- History of similar episode 1 year ago.
- Patient has improved on IV antibiotics and topical drops over the last 4 days.
- Patient has PICC line now in place.
- Plan is to discharge later today with home IV infusions for 6 weeks.
- Patient should continue TobraDex eardrops for the next several weeks as well.
- Will be given remaining TobraDex bottle upon discharge, prescription sent into [facility] for further TobraDex drops if needed.
- Patient will keep ear dry.
- She should follow-up in my office in 2 to 3 weeks.
- She knows to call if problems arise.
Subjective Data
-
Patient again feeling better.
Has only minimal discomfort on left side.
Left ear does have some fullness, feels clogged.
Scant drainage.
Denies any fevers or chills.
PICC line was placed.
Objective Data
-
Vital Signs
Temp Pulse Resp BP Pulse Ox
99.4 F 109 18 157/100 98
03/08/25 15:27 03/08/25 15:27 03/08/25 07:20 03/08/25 15:48 03/08/25 15:27
Intake & Output
03/07/25 03/08/25 03/09/25
06:59 06:59 06:59
Intake:
Oral fluids 960 / 960 720 / 720
Other:
Number of approximated MODERATE 3 2
amounts of urine
Number of approximated LARGE 1
amounts of urine
Lab Results
03/08/25 04:32
03/08/25 04:32
Calcium 8.7 mg/dl (8.4-10.2) 03/08/25 04:32
Magnesium 1.9 mg/dl (1.6-2.3) 03/05/25 07:05
Total Bilirubin 0.4 mg/dl (0.2-1.3) 03/04/25 05:30
AST 17 U/L (14-36) 03/04/25 05:30
ALT 18 U/L (0-35) 03/04/25 05:30
Alkaline Phosphatase 67 U/L (38-126) 03/04/25 05:30
Physical Exam
-
Afebrile, vital signs stable.
Head normocephalic and atraumatic.
Right ear clear.
Left ear canal with mild edema, mild exudate present, mild erythema.
Minimal tenderness.
No granulation tissue present.
TM obscured but appears thickened.
Middle ear cavity not visible on left side.
Left mastoid without any erythema or tenderness.
Mild pain at left tragus.
Nasal cavity and oral cavity clear.�
== END 2025-03-08 16:31 | disposition home or self-care (01) | DRG 872 ==
LOC: 4 EAST ACU 09:06
PROVIDERS: Physician Assistant; Radiology Diagnostic Radiology; Student in an Organized Health Care Education/Training Program; ADMITTING PHYSICIAN Internal Medicine; ATTENDING PHYSICIAN Hospitalist; CONSULT PHYSICIAN Internal Medicine Infectious Disease; EMERGENCY PHYSICIAN Emergency Medicine; OTHER PHYSICIAN Otolaryngology
PROC: 02HV33Z Insertion of Infusion Device into Superior Vena Cava, Percutaneous Approach (ICD-10-PCS; 2025-03-07)
DX: A41.9 Sepsis, unspecified organism (principal); H60.22 Malignant otitis externa, left ear; M86.18 Other acute osteomyelitis, other site; Z68.44 Body mass index [BMI] 60.0-69.9, adult; I16.0 Hypertensive urgency; H70.92 Unspecified mastoiditis, left ear; K59.00 Constipation, unspecified; J45.909 Unspecified asthma, uncomplicated; J32.3 Chronic sphenoidal sinusitis; H66.92 Otitis media, unspecified, left ear; F17.290 Nicotine dependence, other tobacco product, uncomplicated; E66.09 Other obesity due to excess calories; B96.5 Pseudomonas (aeruginosa) (mallei) (pseudomallei) as the cause of diseases classified elsewhere
CPT/HCPCS: 70480; 71045; 80048; 80053; 81025; 83036; 83735; 85025; 85027; 85652; 86140; 87070; 87071; 87186; 87205; 92610; 94640; 96361; 96365; 96375; 99285